=== PATIENT | male | born 1935 | race Caucasian/White ===

== ENCOUNTER 2019-01-27 13:38 | Inpatient (IN) | payer MEDICARE, BC ==
[2019-01-27 14:34] LABS: ALT (SGPT) 7 U/L (8-55); AST (SGOT) 12 U/L (5-34); Albumin 3.8 g/dL (3.4-4.8); Alkaline Phosphatase 67 U/L (40-110); Anion Gap 12 mmol/L (10-20); BUN (Urea Nitrogen) 10 mg/dL (8.4-25.7); Bilirubin, Total 0.8 mg/dL (0.2-1.2); Calc. Creatinine Clearance 0 mL/min (70-130); Carbon Dioxide 35 mmol/L (23-31); Chloride 99 mmol/L (98-107); Estimated GFR-MDRD Greater than 90; Globulin 3.4 g/dL (2.4-3.5); Glucose 144 mg/dL (83-110); Potassium 4.8 mmol/L (3.5-5.1); Protein, Total 7.2 g/dL (5.8-8.1); Sodium 141 mmol/L (136-145)
[2019-01-27 14:35] LABS: #Eosinphils 0.1 thou/uL (0.0-0.7); #Lymphocytes 0.6 thou/uL (1.20-3.40); #Monocytes 0.9 thou/uL (0.11-0.59); #Neutrophils 12.2 thou/uL (1.40-6.50); %Eosinophils 0.8 % (0.0-10.0); %Monocytes 6.2 % (0.0-10.0); %Neutrophils 88.9 % (42.0-75.0); Hemoglobin 15.6 g/dL (14.0-18.0); Mean Corpuscular HGB CONC 32.1 g/dL (32.0-36.0); Mean Corpuscular Hemoglobin 32.3 pg (27.0-31.0); Mean Platelet Volume 8.2 fL (7.4-10.4); Platelet Count 273 thou/uL (130-400); RBC Distribution Width 12.7 % (11.5-14.5); Red Blood Cell (RBC) Count 4.82 mill/uL (4.70-6.10); White Blood Cell (WBC) Count 13.7 thou/uL (4.8-10.8)
--- NOTE | 2019-01-27 14:51 | RAD ---
XR Chest 1 View Portable History: Shortness of breath Comparison: Radiograph 2018 Findings: Heart size is enlarged. Mild bibasilar atelectasis. No pneumothorax. Pulmonary arteries are dilated. Moderate degenerative changes of both glenohumeral joints. Impression: Chronic findings. No acute intrathoracic abnormality.
[2019-01-27 14:55] LABS: CKMB 2.8 ng/mL (0-6.6)
[2019-01-27] MEDS ORDERED: cefTRIAXone\\ROCEPHIN 2 GM VIAL ONE (15:45)
[2019-01-27] MEDS ORDERED: Azithromycin 500 MG VIAL ONE (15:45)
[2019-01-27] MEDS ORDERED: Acetaminophen 325 MG TAB PO PRN (16:59)
[2019-01-27] MEDS ORDERED: Dextrose 5% in Water 1,000 ML IV PRN (17:03)
[2019-01-27] MEDS ORDERED: Dextrose 50% Abboject 50 ML SYRINGE SLOW IVP PRN (17:03)
[2019-01-27 17:19] LABS: Lactic Acid 2.2 mmol/L (0.5-2.2); Troponin I 0.039 ng/mL (< 0.028)
[2019-01-27] MEDS ORDERED: methylPREDNISolone Sod Succ 40 MG VIAL IVP SCH (18:00)
--- NOTE | 2019-01-27 18:29 | HP ---
CHIEF COMPLAINT: Shortness of breath and cough. HISTORY OF PRESENT ILLNESS: This patient is 83-year-old male with history of aggressive smoking 2 to 3 packs per day for many years. The patient says he has never been diagnosed with COPD. He follows at [facility]. He reports that about 2 days ago, he started getting some "cold symptoms." He described it as his throat "clogging." He had subsequent nasal congestion and been using some nasal spray. He has been coughing. The cough is generally a wet cough, but he is having difficulty producing significant amount of sputum (patient produced a fair amount of sputum in the time that I was talking to him). He has yellowish discolored sputum. He says he feels hot, but he is not sure about specifically having fever. He does report some dyspnea on exertion. It has been worse for about 6 months, seems to be more of a problem when he tries to get up to go the bathroom in the night rather than so much being a problem during the day. He denies any chest pain. He has had some wheezing. States that his hearing aids actually amplify the wheezing. His has noted intermittent wheezing for the past several months, but nothing as bad as it is right now. REVIEW OF SYSTEMS: The patient has been having relatively frequent bowel movements and voids. His appetite has been fairly normal and he is a bit hungry now. He has had no peripheral edema and does not appear to have any orthopnea. All other systems reviewed. All pertinent positives and negatives noted in the history of present illness. PAST MEDICAL HISTORY: BPH; hyperlipidemia; hypertension; diabetes mellitus; atrial fibrillation, followed by Dr. Jeffers. He says he has not been diagnosed with COPD previously. PAST SURGICAL HISTORY: Appendectomy, tonsillectomy, bilateral knee replacements. FAMILY HISTORY: Mother at 93. Father at 76. He had TB when he was younger, had carotid stenosis, and reportedly of liver cancer, although he was not a drinker. SOCIAL HISTORY: The patient smokes 2 to 3 packs a day, was a moderate drinker, but quit about 40 years ago. No drugs. He is . He is a full code and his would be his surrogate decision maker should that become necessary. ALLERGIES: PENICILLIN. CURRENT MEDICATIONS: They do not know the medications per se, but do know that he is on: 1. Metformin. 2. Januvia. 3. Finasteride. 4. Xarelto. PHYSICAL EXAMINATION: VITAL SIGNS: Blood pressure has ranged from 163/79 up to 182 systolic and 108 diastolic. GENERAL: He is a large gentleman, somewhat obese. He is in no distress. Awake, alert, oriented, pleasant, and cooperative. He is tachypneic. HEENT: PERRL. No OP lesions. Does have a relatively small oral airway. NECK: Supple and symmetric. HEART: Irregularly irregular without murmurs. LUNGS: Have scattered wheezing. Diminished air exchange. He has diffuse rales and a very wet sounding cough. When he does cough, he tends to become very red in the face to almost cyanotic at times. ABDOMEN: Obese, soft, nontender, and nondistended. Positive bowel sounds. No masses. No organomegaly. EXTREMITIES: Have no cyanosis, clubbing, or edema. He has well-healed surgical scars over the anterior knees bilaterally. He does have good peripheral pulses. LABORATORY DATA: White count is 13.7, hemoglobin is 15.6, platelets 273. Sodium 141, potassium 4.8, chloride 99, CO2 of 35, BUN 10, creatinine 0.81, glucose 144, lactic acid 2.7, AST 12, ALT 7. Troponin 0.05. BNP 209. Albumin is 3.8. Chest x-ray shows cardiomegaly, which is mild along with some chronic findings, but no acute abnormalities are noted. IMPRESSION AND PLAN: 1. Chronic obstructive pulmonary disease exacerbation with bronchitis. He has a negative chest x-ray, but clearly has abnormal lung exam with a productive cough with discolored sputum. He has received Rocephin and azithromycin in the emergency department. I believe it is reasonable to continue with those. We will initiate nebulizer treatments and steroids. Continue with p.r.n. oxygen. 2. Acute hypoxic respiratory failure. O2 saturation on room air was 92%. We have no baseline. Therefore, assuming this is acute, although it is possible this could be some chronic underlying hypoxia in a patient with an extensive smoking history. He is a little better now on oxygen. We will keep that range with his O2 saturations around 92%. 3. Chronic atrial fibrillation. He is on Xarelto. I do not know the dose. I spoke with Dr. Jeffers, who is his cloth laminating supervisor. He will see if he can find that information. In the meantime, I will keep him on 15 mg b.i.d. so we can clarify that it seems to be rate control, but also appears to be chronically in atrial fibrillation. 4. Diabetes mellitus. He knows he is on metformin and Januvia. I will keep him on the lowest doses of those for now and so we can clarify the actual dose Accu-Cheks sliding scale and a diabetic diet. 5. Mild leukocytosis. Suspect this is simply related to some stress reaction and demargination could be related to his bronchitis as well. 6. Mild lactic acidosis. Repeat was 2.2, appears resolved. 7. Equivocal troponin. It is in the indeterminate range, could be related to the hypoxia. We will continue to trend. We will consult Cardiology for the atrial fibrillation. 8. Slightly elevated BNP. He has no echocardiograms reported within our system. He has no known history of cardiomyopathy. He did have an ejection fraction of 40% to 45% on a heart catheterization performed in 2012. I do not believe he has significant decompensation of heart failure at this time and not going to aggressively diurese him based on the lack of pulmonary edema and the minimal elevation of the BNP. 9. History of benign prostatic hypertrophy. Continue with the finasteride. Job ID: [id number]
[2019-01-27] MEDS ORDERED: Ondansetron PF 4 MG/2 ML Vial IVP PRN (18:48)
[2019-01-27] MEDS ORDERED: Ondansetron ODT 4 MG TAB SL PRN (18:48)
[2019-01-27 20:37] LABS: Troponin I 0.066 ng/mL (< 0.028)
[2019-01-27] MEDS: Rivaroxaban 15 MG TAB PO SCH (21:18)
[2019-01-27] MEDS: Famotidine 20 MG TAB PO SCH (21:18)
[2019-01-27] MEDS: guaiFENesin ER 600 MG TAB PO SCH (21:18)
[2019-01-27] MEDS: methylPREDNISolone Sod Succ 40 MG VIAL IVP SCH (21:18)
[2019-01-27 22:02] VITALS: BMI 38.9
[2019-01-28] MEDS: methylPREDNISolone Sod Succ 40 MG VIAL IVP SCH ×4 (02:59→20:33)
[2019-01-28 04:57] LABS: #Basophils 0.1 thou/uL (0.0-0.2); #Lymphocytes 0.2 thou/uL (1.20-3.40); #Monocytes 0.1 thou/uL (0.11-0.59); #Neutrophils 7.2 thou/uL (1.40-6.50); %Basophils 1.9 % (0.0-1.0); %Eosinophils 0.3 % (0.0-10.0); %Lymphocytes 2.3 % (21.0-51.0); %Monocytes 1.6 % (0.0-10.0); Hemoglobin 14.7 g/dL (14.0-18.0); Mean Corpuscular HGB CONC 31.6 g/dL (32.0-36.0); Mean Corpuscular Hemoglobin 31.9 pg (27.0-31.0); Mean Platelet Volume 7.8 fL (7.4-10.4); Platelet Count 228 thou/uL (130-400); RBC Distribution Width 12.7 % (11.5-14.5); Red Blood Cell (RBC) Count 4.62 mill/uL (4.70-6.10); White Blood Cell (WBC) Count 7.7 thou/uL (4.8-10.8)
[2019-01-28 05:07] LABS: Anion Gap 11 mmol/L (10-20); BUN (Urea Nitrogen) 10 mg/dL (8.4-25.7); Calc. Creatinine Clearance 135 mL/min (70-130); Calcium 8.7 mg/dL (7.8-10.44); Carbon Dioxide 31 mmol/L (23-31); Chloride 102 mmol/L (98-107); Estimated GFR-MDRD Greater than 90; Glucose 204 mg/dL (83-110); Potassium 4.6 mmol/L (3.5-5.1); Sodium 139 mmol/L (136-145)
[2019-01-28] MEDS ORDERED: metFORMIN 500 MG TAB PO SCH (08:00)
[2019-01-28] MEDS: Alogliptin 6.25 MG TAB PO SCH (08:54)
[2019-01-28] MEDS: Rivaroxaban 15 MG TAB PO SCH (08:55)
[2019-01-28] MEDS: Famotidine 20 MG TAB PO SCH ×2 (08:55→20:33)
[2019-01-28] MEDS: guaiFENesin ER 600 MG TAB PO SCH ×2 (08:55→20:33)
[2019-01-28] MEDS: Finasteride 5 MG TAB PO SCH (08:55)
[2019-01-28] MEDS ORDERED: Rivaroxaban 10 MG TAB PO SCH (10:00)
[2019-01-28] MEDS ORDERED: Lisinopril/Hydrochlorothiazide 20 mg/12.5 mg Tablet PO SCH (10:00)
[2019-01-28] MEDS: HumaLOG 300 UNITS/3 ML VIAL SC PRN ×2 (12:12→16:06)
--- NOTE | 2019-01-28 14:24 | CON ---
DATE OF CONSULTATION: HISTORY OF PRESENT ILLNESS: An 83-year-old gentleman, who presents with increasing dyspnea. The patient has a previous history of mild cardiomyopathy and chronic atrial fibrillation. The patient was seen in 2012. He underwent a cardiac catheterization. He was found to have a mild decreased left ventricular ejection fraction of 40% to 45% with normal coronary arteries. The patient has been on medical therapy including Coreg and lisinopril. The patient's most recent echo currently revealed normal left ventricular ejection fraction of 50% to 55%. The patient was in usual state of health when he presented with increasing dyspnea. The patient denied having any chest discomfort. The patient denied having any PND or orthopnea. The patient unfortunately continues to smoke. PAST MEDICAL HISTORY: Significant for, 1. Atrial fibrillation. 2. History of cardiomyopathy. 3. Diabetes mellitus. 4. Hypertension. 5. Dyslipidemia. PAST SURGICAL HISTORY: He has had knee replacement, tonsillectomy, and appendectomy. SOCIAL HISTORY: The patient continues to have a long history of tobacco abuse. FAMILY HISTORY: Positive family history of coronary artery disease. MEDICATIONS: On admission was; 1. Metformin 1000 b.i.d. 2. Finasteride 5 mg daily. 3. Sertraline 50 mg daily. 4. Flomax 0.4 daily. 5. Januvia 100 daily. 6. Xarelto 20 daily. 7. Lisinopril/hydrochlorothiazide 25/12.5 two tablets every morning. 8. Coreg 25 b.i.d. 9. Livalo 2 mg p.o. at bedtime. ALLERGIES: PENICILLIN. REVIEW OF SYSTEMS: Ten-point system otherwise unremarkable. PHYSICAL EXAMINATION: GENERAL: This is an elderly gentleman, in no acute distress with a blood pressure of 137/55. NECK: Showed no jugular venous distention. LUNGS: Coarse breath sounds bilateral. HEART: Irregular rate and rhythm. Normal S1 and S2. No murmurs. ABDOMEN: Distended. EXTREMITIES: Show trace edema. VASCULAR: Radial pulses are 2+. LABORATORY RESULTS: Sodium 139, potassium 4.6, chloride 102, bicarb 31, BUN 10, creatinine 0.78, and glucose 204. White blood cell count 7.7, hemoglobin 14.7, hematocrit 46.6, and platelets are 228. IMAGING DATA: His EKG revealed atrial fibrillation with an incomplete right bundle-branch block. No acute ST-T wave changes. IMPRESSION: 1. Chronic obstructive pulmonary disease exacerbation. 2. Permanent atrial fibrillation. 3. History of cardiomyopathy. 4. Diabetes mellitus. 5. Hypertension. 6. Dyslipidemia. 7. Tobacco abuse. PLAN: This gentleman presents with a COPD exacerbation. We will try to wean the patient off Coreg with his recent echo showing normal left ventricular systolic function. He does not have to be on this medication and will ask for Pulmonary consultation. We will follow this patient with you through his hospitalization. Job ID: [id number]
[2019-01-28] MEDS: cefTRIAXone\\ROCEPHIN 1 GM in Sodium Chloride 0.9% 100 ML IVPB SCH (14:57)
[2019-01-28] MEDS: Azithromycin 500 MG in Sodium Chloride 0.9% 250 ML 250 ML IVPB SCH (15:56)
[2019-01-28] MEDS: metFORMIN 500 MG TAB PO SCH (16:05)
[2019-01-28] MEDS: Carvedilol 6.25 MG TAB PO SCH (16:06)
--- NOTE | 2019-01-28 19:22 | CON ---
DATE OF CONSULTATION: 01/28/2019 SERVICE: Pulmonary Medicine. REASON FOR CONSULTATION: COPD. HISTORY OF PRESENT ILLNESS: The patient is a very pleasant 83-year-old white male with past medical history significant for extensive smoking history. He does not carry a formal diagnosis of COPD, though he uses albuterol to affected home on occasion. He was doing fairly well until about 3 days prior to admission when he started having increasing cough, bringing up yellow sputum, and increasing dyspnea on exertion. He got to the point where he could not walk 10 feet without being significantly winded. He presented to the emergency department, and was given antibiotics, nebulized medications, and steroids and he has made a fantastic recovery. The patient has been able to walk up and down the hallways without much difficulty. He denies any fevers or chills. He was bringing up some yellow phlegm, but it has cleared out a little bit and is now pale yellow to white. Otherwise , he is returning to his usual state of health. He has never had a formal diagnosis of COPD. PAST MEDICAL HISTORY: 1. Dyslipidemia. 2. Hypertension. 3. Type 2 diabetes mellitus. 4. Atrial fibrillation. 5. BPH. 6. COPD, suspected. PAST SURGICAL HISTORY: 1. Appendectomy. 2. Tonsillectomy. 3. Bilateral knee replacements. FAMILY HISTORY: Noncontributory. SOCIAL HISTORY: He smokes 2 to 3 packs on a daily basis and has greater than 150 pack year history of smoking. He quit drinking alcohol roughly 40 years ago. Denies any significant illicit drug use. He has no exposure to chemicals, dust, asbestos, or tuberculosis. Currently, he is retired. ALLERGIES: PENICILLIN. MEDICATIONS: List of his inpatient medications was reviewed. I have converted his antibiotics over to p.o. REVIEW OF SYSTEMS: General; head, ears, eyes, nose, throat; cardiovascular; respiratory; GI; ; musculoskeletal; neurologic; and skin are negative except as mentioned in the HPI. PHYSICAL EXAMINATION: VITAL SIGNS: Afebrile, pulse 63, blood pressure 139/59, respirations 20, and saturation 94% on 2 L nasal cannula. GENERAL: The patient is awake and alert, in no apparent distress. LUNGS: Really reduced air entry. There is a prolonged expiratory phase. Really, he is not moving enough air for me hear a lot of adventitious sounds. HEART: Normal rate and regular. ABDOMEN: Soft, nontender, and nondistended. Bowel sounds are positive. MUSCULOSKELETAL: No cyanosis or clubbing. There is no pitting in the bilateral lower extremities. NEUROLOGIC: Grossly nonfocal. LABORATORY DATA: WBC 7.7, hemoglobin 14.7, platelets 228,000. Basic metabolic profile is otherwise unremarkable. Liver function studies are negative. BNP 208. Troponin was originally 0.05, but downtrending to 0.039. Lactate 2.2, but was originally elevated at 2.7. ASSESSMENT: 1. Acute hypoxic respiratory failure. 2. Chronic obstructive pulmonary disease with acute exacerbation. 3. Atrial fibrillation, chronic. 4. Obstructive sleep apnea, strongly suspected. DISCUSSION AND PLAN: The patient is doing absolutely fantastic from a respiratory standpoint compared to when he came in. I think it is reasonable for us to discharge him home today or tomorrow morning if he continues to improve. I will convert him over to a p.o. antibiotics and steroids. He can go out on p.r.n. DuoNeb. I would like to see him in my clinic within 2 to 3 weeks after he is discharged from the hospital, so we can clarify his underlying lung disease. Furthermore, he has horrendous sleep apnea, witnessed by multiple family members. This may require investigation in the outpatient setting, though sometimes 83-year-old do not take to noninvasive therapy well. Time will tell, however. 70 minutes have been devoted to this patient in various activities. I personally reviewed all imaging studies and laboratory data noted within this document. For fifty percent of this time, I was interacting with the patient at the bedside or coordinating care with the care team. For the remainder of the time I was immediately available to the patient in the hospital unit. Job ID: [id number] MTDD
[2019-01-28] MEDS ORDERED: Tamsulosin HCl 0.4 MG CAP PO SCH (21:00)
--- NOTE | 2019-01-28 21:08 | PDOC.HOSPP ---
- Subjective Subjective: Doing much better today. Cough improved. Breathing improved. Still has some trouble coughing up the sputum. - Objective Vital Signs & Weight: Vital Signs (12 hours) Temp Pulse Resp BP Pulse Ox 01/28/19 13:41 96 20 01/28/19 12:00 96.1 F L 80 20 134/62 95 01/28/19 10:41 63 Weight Weight 287 lb 5 oz I&O: 01/27/19 01/28/19 01/29/19 06:59 06:59 06:59 Intake Total 1740 Balance 1740 Result Diagrams: 01/28/19 04:44 01/28/19 04:44 Additional Labs: Accuchecks 01/28/19 01/28/19 01/28/19 20:50 16:06 10:04 POC Glucose 229 H 282 H 225 H 01/28/19 05:52 POC Glucose 173 H Hospitalist ROS - Medication Medications: Active Medications Generic Name Dose Route Start Last Admin Trade Name Freq PRN Reason Stop Dose Admin Albuterol/Ipratropium 3 ml 01/27/19 19:00 01/28/19 18:48 Duoneb NEB 3 ml [id number] CITLALLI Administration Alogliptin Benzoate 6.25 mg 01/28/19 09:00 01/28/19 08:54 Alogliptin PO 6.25 mg DAILY CITLALLI Administration Carvedilol 6.25 mg 01/28/19 17:00 01/28/19 16:06 Coreg PO 6.25 mg BID-WM CITLALLI Administration Famotidine 20 mg 01/27/19 21:00 01/28/19 20:33 Pepcid PO 20 mg BID CITLALLI Administration Finasteride 5 mg 01/28/19 09:00 01/28/19 08:55 Proscar PO 5 mg DAILY CITLALLI Administration Guaifenesin 600 mg 01/27/19 21:00 01/28/19 20:33 Mucinex PO 600 mg Q12HR CITLALLI Administration Azithromycin 500 mg/ Sodium 250 mls @ 250 mls/hr 01/28/19 16:00 01/28/19 15: 56 Chloride IVPB 250 mls 1600 CITLALLI Administration Ceftriaxone Sodium 1 gm/ 100 mls @ 200 mls/hr 01/28/19 15:00 01/28/19 14:57 Sodium Chloride IVPB 100 mls 1500 CITLALLI Administration Insulin Human Lispro 0 units 01/27/19 17:03 01/28/19 16:06 Humalog SC 4 unit .MILD SLIDING SCALE PRN Administration Mild Correctional Scale Metformin HCl 1,000 mg 01/28/19 17:00 01/28/19 16:05 Glucophage PO 1,000 mg BID-WM CITLALLI Administration Methylprednisolone Sodium Succinate 40 mg 01/27/19 21:00 01/28/19 20:33 Solu-Medrol IVP 40 mg 0300,0900,1500,2100 CITLALLI Administration Sodium Chloride 10 ml 01/27/19 21:00 01/28/19 20:34 Flush - Normal Saline IVF 10 ml Q12HR CITLALLI Administration Tamsulosin HCl 0.4 mg 01/28/19 21:00 01/28/19 20:33 Flomax PO 0.4 mg HS CITLALLI Administration - Exam General Appearance: NAD, awake alert Heart: no murmur, no gallops, no rubs, normal peripheral pulses, irregular Respiratory: no rales (Modest. Much improved.), no ronchi (Resolved.) Respiratory - other findings: Generally diminished. Gastrointestinal: soft, non-tender, non-distended, normal bowel sounds, no palpable masses, no hepatomegaly, no splenomegaly, no bruit Extremities: no cyanosis, no clubbing, no edema Skin: normal turgor Musculoskeletal: normal tone Psychiatric: normal affect, normal behavior, A&O x 3 Hosp A/P (1) Bronchitis Code(s): J40 - BRONCHITIS, NOT SPECIFIED ACUTE OR CHRONIC Status: Acute (2) COPD exacerbation Code(s): J44.1 - CHRONIC OBSTRUCTIVE PULMONARY DISEASE W (ACUTE) EXACERBATION Status: Acute (3) RADHA (obstructive sleep apnea) Code(s): G47.33 - OBSTRUCTIVE SLEEP APNEA (ADULT) (PEDIATRIC) Status: Acute (4) Chronic atrial fibrillation Code(s): I48.20 - CHRONIC ATRIAL FIBRILLATION, UNSPECIFIED Status: Acute (5) Acute respiratory failure with hypoxia Code(s): J96.01 - ACUTE RESPIRATORY FAILURE WITH HYPOXIA Status: Acute (6) Diabetes mellitus Code(s): E11.9 - TYPE 2 DIABETES MELLITUS WITHOUT COMPLICATIONS Status: Acute (7) Cardiomyopathy Code(s): I42.9 - CARDIOMYOPATHY, UNSPECIFIED Status: Acute (8) BPH (benign prostatic hyperplasia) Code(s): N40.0 - BENIGN PROSTATIC HYPERPLASIA WITHOUT LOWER URINRY TRACT SYMP Status: Acute (9) Lactic acidosis Code(s): E87.2 - ACIDOSIS Status: Acute (10) Elevated troponin Code(s): R79.89 - OTHER SPECIFIED ABNORMAL FINDINGS OF BLOOD CHEMISTRY Status : Acute (11) Obesity with body mass index (BMI) of 30.0 to 39.9 Code(s): E66.9 - OBESITY, UNSPECIFIED Status: Acute - Plan Trops likely normal for age. Not following a pattern and not likely ischemia related. COPD exac is much improved. Continue with abx, steroids, nebs. Anticipate weaning oxygen tomorrow and sending him home. Will need prn nebs. OP Pulm follow up. Blood sugars adequately controlled. Acidosis resolved.
[2019-01-29] MEDS: methylPREDNISolone Sod Succ 40 MG VIAL IVP SCH ×3 (02:30→14:37)
[2019-01-29] MEDS: guaiFENesin ER 600 MG TAB PO SCH (09:00)
[2019-01-29] MEDS ORDERED: Lisinopril/Hydrochlorothiazide 20 mg/12.5 mg Tablet PO SCH (09:00)
[2019-01-29] MEDS: Famotidine 20 MG TAB PO SCH (09:00)
[2019-01-29] MEDS: metFORMIN 500 MG TAB PO SCH ×2 (09:00→17:06)
[2019-01-29] MEDS: Finasteride 5 MG TAB PO SCH (09:00)
[2019-01-29] MEDS: Carvedilol 6.25 MG TAB PO SCH ×2 (09:01→17:06)
[2019-01-29] MEDS: Alogliptin 6.25 MG TAB PO SCH (09:01)
--- NOTE | 2019-01-29 10:30 | PRG ---
DATE OF SERVICE: 01/29/2019 SERVICE: Pulmonary Medicine. INTERVAL HISTORY: The patient is doing fine from respiratory standpoint. Breathing comfortably. He indicates his breathing is basically back to baseline. He is coughing a little bit, but the amount of phlegm he is bringing up is much less and is clear. Otherwise, there has been no interval change to his condition. PHYSICAL EXAMINATION: VITAL SIGNS: Afebrile, pulse 66, blood pressure 144/65, respirations 18, and saturation 99% on 2.5 L nasal cannula. GENERAL: The patient is awake and alert, in no apparent distress. LUNGS: Very good air entry compared to yesterday. There is a prolonged expiratory phase as well as polyphonic wheezing today. No significant rhonchi or crackling is appreciated. HEART: Normal rate, regular. ABDOMEN: Soft, nontender, and nondistended. Bowel sounds are positive. MUSCULOSKELETAL: No cyanosis or clubbing. Trace pitting is present in bilateral lower extremities. NEUROLOGIC: Grossly nonfocal. LABORATORY DATA: Blood sugars ranged from 137 to 229. ASSESSMENT: 1. Acute hypoxic respiratory failure. 2. Chronic obstructive pulmonary disease with acute exacerbation. 3. Atrial fibrillation, chronic. 4. Obstructive sleep apnea, strongly suspected. DISCUSSION AND PLAN: I would get the patient up and walk him around without oxygen. Regardless of whether or not he desaturates, if he indicates that his breathing is pretty close to baseline and he feels comfortable going home, that would be fine. He will need 5 days of steroids and antibiotics. He should go out with p.r.n. nebulized medications. I will have him visit with me late this month in the outpatient setting, so we can clarify his underlying lung disease, and set him up for a polysomnogram. If for any reason, he has shortness of breath, which is worse than usual with ambulation on room air, we should arrange for him to go out on oxygen for at least one month. I will re-qualify him in the outpatient setting if he continues to need it. Job ID: [id number]
[2019-01-29] MEDS: HumaLOG 300 UNITS/3 ML VIAL SC PRN ×2 (11:15→17:07)
[2019-01-29] MEDS: cefTRIAXone\\ROCEPHIN 1 GM in Sodium Chloride 0.9% 100 ML IVPB SCH (14:37)
[2019-01-29] MEDS: Azithromycin 500 MG in Sodium Chloride 0.9% 250 ML 250 ML IVPB SCH (16:00)
[2019-01-29 16:02] VITALS: BP 144/49; TEMP 97.7
[2019-01-29] MEDS ORDERED: Rivaroxaban 10 MG TAB PO SCH ×2 (18:00→21:00)
--- NOTE | 2019-01-30 12:20 | DIS ---
DATE OF ADMISSION: 01/27/2019 DATE OF DISCHARGE: 01/29/2019 DISCHARGE DIAGNOSES: 1. Acute respiratory failure with hypoxia. 2. Acute bronchitis with chronic obstructive pulmonary disease exacerbation. 3. Chronic obstructive pulmonary disease. 4. Obstructive sleep apnea. 5. Chronic atrial fibrillation. 6. Diabetes mellitus. 7. Cardiomyopathy. 8. BPH. 9. Lactic acidosis. 10. Elevated troponin, likely due to demand ischemia from hypoxia resulting in type 2 ST-elevation myocardial infarction. 11. Obesity with body mass index of 39. HISTORY: This patient is 83-year-old male who smokes 2 to 3 packs of cigarettes per day, who has never been previously diagnosed with COPD, who reported some increasing dyspnea on exertion for about 6 months. He subsequently developed a productive cough with discolored sputum causing him substantial increase in his shortness of breath. He subsequently presented to the emergency department. There, he was noted to be slightly hypoxic. His chest x-ray showed chronic findings, but nothing acute. HOSPITAL COURSE: The patient was admitted to the hospital, started on some steroids, nebulizer treatments, supplemental oxygen, antibiotics, and mucolytics. By the following day, the patient was substantially improved. His breathing had improved remarkably. He had no wheezing at that time. He was seen in consultation by Dr. Jeffers, who is his regular advertiser following his atrial fibrillation. He recommended weaning off the patient's carvedilol given his underlying respiratory issues and a prior echocardiogram showing no specific left ventricular dysfunction. He also consulted Dr. Charles who agreed with the plan of care and recommended outpatient followup and outpatient investigation for possible or likely obstructive sleep apnea. Prior to discharge, the patient did get up and ambulate off oxygen , he desatted to about 87%, per my verbal report. Therefore, he qualified for home oxygen. This was subsequently ordered and arranged. PHYSICAL EXAMINATION: VITAL SIGNS: On the day of discharge, temperature is 97.7, pulse 95, respirations 20, O2 saturation 93% on 2 L, BP is 144/49. GENERAL: He was obese, awake, alert, oriented, pleasant, cooperative. HEART: Regular rate and rhythm. No murmurs. LUNGS: Diminished, but no wheezes noted. Very minimal rales which were largely cleared with cough. ABDOMEN: Soft, nontender. EXTREMITIES: No edema. DISPOSITION: The patient is discharged to home. ACTIVITY: As tolerated. DIET: He will remain on a diabetic diet. MEDICATIONS: He will be on: 1. Guaifenesin 600 mg q.12 hours. 2. Levofloxacin 500 mg daily. 3. Prednisone 20 mg daily. He will continue: 1. Finasteride. 2. Januvia. 3. Sertraline. 4. Livalo. 5. Lisinopril HCTZ. 6. Metformin. 7. Xarelto. 8. Tamsulosin. 9. Carvedilol. FOLLOWUP: He is to follow up with Dr. hCarles in 2 to 3 weeks. He can return to the hospital should he have any problems prior to that time. TIME SPENT: Total time in discharge activities was 40 minutes. Job ID: [id number] [facility] [place]
--- NOTE | 2019-01-31 05:04 | PQF ---
[employer] Supervisor Crystal Reports Winform ViewerNICKOLAS NORMAN DAVID R MD [id number] [facility]-[id number] CLINICAL DOCUMENTATION CLARIFICATION FORM: POST DISCHARGE Addendum to original discharge summary date: ____ Late entry note date: __ DATE: 01/31/2019 ATTN: CARLI JAMES MD Please exercise your independent, professional judgment in responding to the clarification form. Clinical indicators are provided on the bottom of this form for your review Please check appropriate box(s): Could you clarify which condition Patient was being admitted [ ] Acute Hypoxic Respiratory Failure [ ] COPD exacerbation [ ] Other diagnosis [ ] Unable to determine In addition, please specify: Present on Admission (POA): [ ] Yes [ ] No [ ] Unable to determine For continuity of documentation, please document condition throughout progress notes and discharge summary. Thank You. CLINICAL INDICATORS - SIGNS / SYMPTOMS / LABS O2 saturation 90 on 01/27 and 89 on 01/29 - Documented in Vital signs SOB and he has never been diagnosed with COPD - Documented in H&P on 01/27 by Sree Deng Dyspnea on exartion - Documented in H&P on 01/27 by Sree Deng COPD exacerbation with Bronchitis - Documented in H&P on 01/27 by Sree Deng O2 saturation on Room air 92% - Documented in H&P on 01/27 by Sree Deng Chronic underlying Hypoxia - Documented in H&P on 01/27 by Sree Deng RISK FACTORS Smoker 2-3 packe per day -Documented in H&P on 01/27 by Sree Deng Acute respiratory failure -Documented in H&P on 01/27 by Sree Deng TREATMENTS: O2 delivery Nasal Cannula He received Rocephin and azithromycin in ED - Documented in H&P on 01/27 by Sree Deng initiate Nebulizer and steroids - Documented in H&P on 01/27 by Sree SHERIFF Waterproofing Supervisor Crystal Reports Winform Viewer (This form is maintained as a part of the permanent medical record) 2014 [employer], [employer]. All Rights Reserved [email or web address] [not provided] MTDD
== END 2019-01-29 17:30 | disposition home or self-care (01) | DRG 189 ==
LOC: ERS 13:38 → 2NO 18:25
PROVIDERS: ADMIT Internal Medicine; ATTEND Internal Medicine
DX: J96.01 Acute respiratory failure with hypoxia (principal); I21.A1 Myocardial infarction type 2; J44.1 Chronic obstructive pulmonary disease with (acute) exacerbation; E87.2 Acidosis; I48.20 Chronic atrial fibrillation, unspecified; I42.9 Cardiomyopathy, unspecified; J44.0 Chronic obstructive pulmonary disease with (acute) lower respiratory infection; N40.0 Benign prostatic hyperplasia without lower urinary tract symptoms; E78.5 Hyperlipidemia, unspecified; Z90.49 Acquired absence of other specified parts of digestive tract; I10 Essential (primary) hypertension; E11.9 Type 2 diabetes mellitus without complications; Z90.89 Acquired absence of other organs; Z96.653 Presence of artificial knee joint, bilateral; F17.210 Nicotine dependence, cigarettes, uncomplicated; Z88.0 Allergy status to penicillin; Z79.899 Other long term (current) drug therapy; D72.829 Elevated white blood cell count, unspecified; G47.33 Obstructive sleep apnea (adult) (pediatric); R79.89 Other specified abnormal findings of blood chemistry; E66.9 Obesity, unspecified; Z68.39 Body mass index [BMI] 39.0-39.9, adult; J20.9 Acute bronchitis, unspecified
CPT/HCPCS: 36415; 36416; 71045; 80048; 80053; 82553; 83605; 83880; 84484; 85025; 93005; 94640; 94760; 96365; 96367; J0456; J0696; J2920; J3490; J7050; J7620

== ENCOUNTER 2019-08-14 12:59 | Outpatient (CLI) | payer MEDICARE, BC ==
--- NOTE | 2019-08-14 13:37 | RAD ---
PA AND LATERAL VIEWS CHEST: 08/14/19 HISTORY: Dyspnea. COMPARISON: 03/29/18. FINDINGS: The heart is enlarged. The aorta is tortuous. The lungs are expanded without lobar consolidation, pne umothoraces, ga pulmonary edema or pleural effusion. There are degenerative changes in the spine. IMPRESSION: No acute process. POS: CHRISTIANA
== END 2019-08-14 13:00 | disposition home or self-care (01) ==
LOC: BICRAD 12:59
PROVIDERS: ATTEND Internal Medicine Critical Care Medicine
DX: R06.00 Dyspnea, unspecified (principal)
CPT/HCPCS: 71046

== ENCOUNTER 2019-12-09 11:27 | Inpatient (IN) | payer MEDICARE, BC, OTHER ==
[2019-12-05 09:32] VITALS: BMI 38.6
[~2019-12-09 11:27] MED LIST: EPHEDRINE 25 MG/5 ML SYRINGE ONE; Glycopyrrolate 0.2 MG/ML 5 ML SYRINGE ONE; Lidocaine 1% PF 5 ML VIAL ONE; Ondansetron PF 4 MG/2 ML Vial ONE; PROPOFOL 200 MG/20 ML VIAL ONE; Rocuronium Bromide 10 MG/ML (10ML VIAL) ONE
[2019-12-09] MEDS ORDERED: Sodium Chloride 0.9% 0 ML ONE (13:28)
[2019-12-09] MEDS ORDERED: cefTRIAXone\\ROCEPHIN 2 GM VIAL ONE (13:28)
[2019-12-09] MEDS ORDERED: Vancomycin 1 GM/200 ML BAG ONE (13:28)
[2019-12-09] MEDS ORDERED: Sodium Chloride 0.9% 100 ML ONE (13:31)
[2019-12-09] MEDS ORDERED: Iothalamate Meglumine 60% 50 ML VIAL FS ONE (14:47)
[2019-12-09] MEDS ORDERED: Fentanyl 100 MCG/2 ML VIAL ONE (15:03)
[2019-12-09] MEDS ORDERED: predniSONE 5 MG TAB PO PRN (16:24)
[2019-12-09] MEDS ORDERED: guaiFENesin ER 600 MG TAB PO PRN (16:24)
[2019-12-09] MEDS ORDERED: B & O PR PRN (16:26)
[2019-12-09] MEDS ORDERED: SEMAGLUTIDE 5 MG SC SCH (16:30)
[2019-12-09] MEDS ORDERED: D5 1/2 NS w/20 mEq KCL 1,000 ML ONE (16:43)
[2019-12-09] MEDS ORDERED: Ondansetron HCl/PF 4 MG/2 ML Vial IVP PRN (16:43)
[2019-12-09] MEDS ORDERED: Promethazine HCl 25 MG/ML VIAL SLOW IVP PRN (16:43)
[2019-12-09] MEDS ORDERED: Promethazine HCl 25 MG/ML VIAL IM PRN (16:43)
[2019-12-09] MEDS: Docusate 100 MG CAP PO SCH (21:18)
[2019-12-09] MEDS: Atorvastatin Calcium 10 MG TAB PO SCH (21:18)
[2019-12-09] MEDS: D5 1/2 NS w/20 mEq KCL 1,000 ML IV SCH (21:36)
[2019-12-09] MEDS ORDERED: Dextrose 5% in Water 1,000 ML IV PRN (21:38)
[2019-12-09] MEDS ORDERED: HumaLOG 300 UNITS/3 ML VIAL SC PRN ×2 (21:38)
[2019-12-09] MEDS ORDERED: Dextrose 50% Abboject 50 ML SYRINGE SLOW IVP PRN (21:38)
--- NOTE | 2019-12-09 22:09 | CON ---
DATE OF CONSULTATION: PRIMARY CARE PHYSICIAN: Dr. Flores. REASON FOR CONSULTATION: Medical management status post TURP. HISTORY OF PRESENT ILLNESS: The patient is an 84-year-old male with past medical history significant for diabetes, high lipids, atrial fibrillation, and hypertension, who presented for a TURP with Dr. Story. We have been consulted for medical management with the patient. At the time of interview, he had no complaints. PAST MEDICAL HISTORY: Diabetes type 2, hyperlipidemia, atrial fibrillation, hypertension, cardiomyopathy, obesity, COPD. PAST SURGICAL HISTORY: Right total knee replacement in 2009. ALLERGIES: PENICILLIN. MEDICATIONS: 1. Anoro Ellipta one puff inhaled q.a.m. 2. Ozempic 5 mg subcu q.7 days. 3. Vascepa two capsules by mouth twice daily before meals. 4. Sertraline 50 mg q.a.m. 5. Xarelto 20 mg daily. 6. Livalo 2 mg daily. 7. Lisinopril/hydrochlorothiazide 20/12.5 one tab daily. 8. Proscar 5 mg daily. 9. Tamsulosin 0.4 mg p.o. at bedtime. 10. Prednisone 5 mg p.r.n. 11. Metformin 1000 mg p.o. b.i.d. 12. Januvia 100 mg every morning. Please note, Xarelto has been held since 12/05/2019 for the surgery. SOCIAL HISTORY: The patient lives at home with his . Denies any alcohol or drug use. FAMILY HISTORY: Noncontributory to this case. REVIEW OF SYSTEMS: All other review of systems are negative unless noted in the HPI. PHYSICAL EXAMINATION: VITAL SIGNS: Temperature 97.8, pulse 63, respiratory rate 16, O2 saturation 93% , blood pressure 135/60. GENERAL: The patient in no acute distress. HEENT: Head atraumatic, normocephalic. CARDIOVASCULAR: Irregular rate and rhythm, rate controlled. No murmurs, no rubs, no gallops. RESPIRATORY: Clear to auscultation bilaterally. No rhonchi, no wheezes, no rales. ABDOMEN: Soft, nontender, nondistended. EXTREMITIES: No cyanosis, no edema. LABORATORY DATA: EKG on file shows chronic atrial fibrillation, controlled rate. Labs completed on 12/06/2019 showed white blood cells 10.7, red blood cells 4.61 , hemoglobin 14.3, hematocrit 44.1, platelets 364. Sodium 137, potassium 5.1, creatinine 0.89, GFR 82. COVID screen was negative. IMPRESSION AND PLAN: 1. Diabetes. Monitor Accu-Cheks before meals and at bedtime. Cover with sliding scale insulin. Restart home medications. 2. Atrial fibrillation. Vital signs q.shift. Restart home medications. Restart Xarelto when cleared by surgeon. 3. Hypertension. Restart home medications. Monitor vital signs every shift. 4. The patient on GI and DVT prophylaxis. 5. The patient wishes to be full code. Surrogate decision maker is his . Patient states the plan is to be discharged in the morning, we will continue to follow patient throughout course of hospital stay. Job ID: [id number] VIANNEY
[2019-12-10] MEDS: metFORMIN 500 MG TAB PO SCH ×3 (00:23→18:42)
--- NOTE | 2019-12-10 00:33 | OP ---
DATE OF PROCEDURE: 12/09/2019 PREOPERATIVE DIAGNOSES: Bladder outlet obstruction, lower urinary tract symptoms. POSTOPERATIVE DIAGNOSES: Bladder outlet obstruction, lower urinary tract symptoms. PROCEDURE PERFORMED: Cysto TURP. ANESTHESIA: General. ESTIMATED BLOOD LOSS: 50 mL. FINDINGS: He had no stricture disease. He had large lateral lobe, small middle lobe. The bladder had 1+ trabeculation to ureteral orifices with clear efflux. No tumor, foreign body, or stone. DESCRIPTION OF PROCEDURE: After obtained written and verbal consent from the patient after receiving IV antibiotics, he was taken to the operating suite. He was placed in the supine position on the treatment table. PlexiPulses placed in his lower extremities and turned on. He was given a general anesthetic and oral obturator intubation. He was placed in dorsal lithotomy position, sterilely prepped and draped. Cystoscopy was performed with a 22-Pu[place] Rican sheath. This was well lubricated and passed under direct vision through the male urethra into the urinary bladder with aid of a 30-degree lens and video camera and monitor. The bladder was examined with both the 30 and the 70-degree lens with the findings above. Instruments were removed and he was gently dilated to 26-[place]ican with [place] sounds. A 24-Pu[place]ican resectoscope sheath with Ltaha obturator was passed under direct vision with a 30-degree lens video camera and monitored through the male urethra into the prostatic urethra into the bladder. RightSignature resectoscope with the Gyrus generator and a 30-degree lens and video camera and monitor were used. The trigone, bladder neck, verumontanum were identified. We initially resected down the small median lobe and then floor from the 5 to 7 o'clock position from bladder neck just proximal to the verumontanum. The left lobe was taken down from 12 o'clock to 5. The right from 12 o'clock to 7. Apical tissue was resected in half loop bites, coagulating current was used to obtain hemostasis. We Ellik'd out the chips at the end of the case and reinspected. There was good hemostasis. The bladder looked fine. Instruments were removed. Laboy catheter 22-Pu[place]ican 3-way was placed with aid of a catheter guide into the bladder. About 50 cc placed in the balloon. It was hand irrigated, it was clear. He was taken out of dorsal lithotomy position. Catheter was secured on his right thigh mild traction with Velcro leg strap and sucked up to some continuous bladder irrigation. He was awakened and extubated and taken by stretcher to recovery room. Job ID: [id number] [facility]
[2019-12-10] MEDS: D5 1/2 NS w/20 mEq KCL 1,000 ML IV SCH ×2 (05:31→10:46)
[2019-12-10 05:56] LABS: #Eosinphils 0.1 thou/uL (0.0-0.7); #Lymphocytes 0.7 thou/uL (1.20-3.40); #Monocytes 0.7 thou/uL (0.11-0.59); #Neutrophils 11.4 thou/uL (1.40-6.50); %Basophils 0.3 % (0.0-1.0); %Eosinophils 0.4 % (0.0-10.0); %Lymphocytes 5.7 % (21.0-51.0); %Monocytes 5.5 % (0.0-10.0); %Neutrophils 88.1 % (42.0-75.0); Hemoglobin 12.9 g/dL (14.0-18.0); Mean Corpuscular HGB CONC 31.2 g/dL (32.0-36.0); Mean Corpuscular Hemoglobin 30.2 pg (27.0-31.0); Mean Platelet Volume 8.2 fL (7.4-10.4); Platelet Count 331 thou/uL (130-400); Red Blood Cell (RBC) Count 4.25 mill/uL (4.70-6.10)
[2019-12-10 06:14] LABS: Anion Gap 13 mmol/L (10-20); BUN (Urea Nitrogen) 15 mg/dL (8.4-25.7); Calc. Creatinine Clearance 125 mL/min (70-130); Calcium 8.2 mg/dL (7.8-10.44); Carbon Dioxide 25 mmol/L (23-31); Chloride 103 mmol/L (98-107); Estimated GFR-MDRD 90; Glucose 157 mg/dL (83-110); Potassium 4.5 mmol/L (3.5-5.1); Sodium 136 mmol/L (136-145)
[2019-12-10] MEDS: Lisinopril/Hydrochlorothiazide 20 mg/12.5 mg Tablet PO SCH (09:46)
[2019-12-10] MEDS: Finasteride 5 MG TAB PO SCH (09:47)
[2019-12-10] MEDS: Docusate 100 MG CAP PO SCH ×2 (09:47→21:26)
[2019-12-10] MEDS: Acetaminophen 500 MG TAB PO PRN ×2 (10:47→21:26)
[2019-12-10] MEDS: Alogliptin 25 MG TAB PO SCH (10:57)
[2019-12-10] MEDS ORDERED: cefTRIAXone\\ROCEPHIN 1 GM in Sodium Chloride 0.9% 100 ML IVPB SCH (14:00)
[2019-12-10] MEDS: Icosapent Ethyl 1 GM CAPSULE PO SCH (16:55)
[2019-12-10] MEDS ORDERED: Melatonin 3 MG TAB PO PRN (20:39)
--- NOTE | 2019-12-10 21:19 | PDOC.HOSPP ---
- Subjective Encounter Date: 12/10/19 Encounter Time: 11:30 Subjective: Patient seen and examined for medical management. Denies any chest pain, shortness of breath or lower extremity swelling. Pain controlled. - Objective Vital Signs & Weight: Vital Signs (12 hours) Temp Pulse Resp BP Pulse Ox 12/10/19 20:12 97.9 F 72 18 149/69 H 92 L 12/10/19 18:52 60 16 95 12/10/19 16:23 98.6 F 73 16 144/69 H 93 L 12/10/19 12:09 58 L 16 96 12/10/19 11:38 98.6 F 79 18 162/97 H 93 L Weight Weight 285 lb I&O: 12/09/19 12/10/19 12/11/19 06:59 06:59 06:59 Output Total 3825 Balance -3825 Result Diagrams: 12/10/19 05:34 12/10/19 05:34 Additional Labs: Accuchecks 12/10/19 12/10/19 12/10/19 16:56 13:30 05:19 POC Glucose 152 H 210 H 151 H Radiology Reviewed by me: Yes (Chest x-ray from Reviewed) Hospitalist ROS - Review of Systems Respiratory: denies: cough, dry, shortness of breath, hemoptysis, SOB with excertion, pleuritic pain, sputum, wheezing, other Cardiovascular: denies: chest pain, palpitations, orthopnea, paroxysmal noc. dyspnea, edema, light headedness, other - Medication Medications: Active Medications Generic Name Dose Route Start Last Admin Trade Name Freq PRN Reason Stop Dose Admin Acetaminophen 500 mg 12/09/19 16:19 12/10/19 10:47 Tylenol PO 500 mg Q4H PRN Administration MAYS/Fever > 101F/mild pain(1-3) Albuterol/Ipratropium 3 ml 12/09/19 19:00 12/10/19 18:52 Duoneb NEB 3 ml [id number] CITLALLI Administration Alogliptin Benzoate 25 mg 12/10/19 09:00 12/10/19 10:57 Alogliptin PO 25 mg DAILY CITLALLI Administration Atorvastatin Calcium 10 mg 12/09/19 21:00 12/09/19 21:18 Lipitor PO 10 mg HS CITLALLI Administration Docusate Sodium 100 mg 12/09/19 21:00 12/10/19 09:47 Colace PO Not Given BID CITLALLI Finasteride 5 mg 12/10/19 09:00 12/10/19 09:47 Proscar PO 5 mg QAM CITLALLI Administration Lisinopril/HCTZ 1 tab 12/10/19 09:00 12/10/19 09:46 Prinizide 20-12.5 PO 1 tab QAM CITLALLI Administration Ceftriaxone Sodium 1 gm/ 100 mls @ 200 mls/hr 12/10/19 14:00 12/10/19 16:57 Sodium Chloride IVPB 100 mls 1400 CITLALLI Administration Potassium Chloride/Dextrose/Sod Cl 1,000 mls @ 75 mls/hr 12/09/19 16:30 12/10/19 10:46 D5 1/2 Ns W/20 Meq Kcl IV 1,000 mls .[id number] CITLALLI Administration Insulin Human Lispro 0 units 12/09/19 21:38 12/10/19 05:24 Humalog SC 2 unit .MILD SLIDING SCALE PRN Administration Mild Correctional Scale Metformin HCl 1,000 mg 12/09/19 08:00 12/10/19 18:42 Glucophage PO 1,000 mg BID-WM CITLALLI Administration Miscellaneous Medication 2 gm 12/10/19 09:00 12/10/19 16:55 Vascepa PO Not Given DAILY CITLALLI Sertraline HCl 50 mg 12/10/19 09:00 12/10/19 09:47 Zoloft PO 50 mg DAILY CITLALLI Administration - Exam General Appearance: NAD Heart: RRR, no gallops Respiratory: no wheezes, no rales Gastrointestinal: non-tender, non-distended, normal bowel sounds Extremities: no cyanosis, no clubbing Neurological: no new deficit Hosp A/P (1) BPH (benign prostatic hyperplasia) Code(s): N40.0 - BENIGN PROSTATIC HYPERPLASIA WITHOUT LOWER URINRY TRACT SYMP Status: Acute (2) Chronic atrial fibrillation Code(s): I48.20 - CHRONIC ATRIAL FIBRILLATION, UNSPECIFIED Status: Acute (3) RADHA (obstructive sleep apnea) Code(s): G47.33 - OBSTRUCTIVE SLEEP APNEA (ADULT) (PEDIATRIC) Status: Acute (4) Obesity with body mass index (BMI) of 30.0 to 39.9 Code(s): E66.9 - OBESITY, UNSPECIFIED Status: Acute (5) Diabetes mellitus, type II Status: Chronic Qualifiers: Chronic kidney disease stage: stage 2 (mild) - Plan DVT proph w/SCDs 12/09 Anticoagulation on hold due to recent surgery. Continue gentle hydration. Continue antibiotics per urology. Continue sliding scale with metformin. Continue lisinopril with HCTZ. Continue mild sliding scale. Continue other medications as above. Other inactive issues hyperlipidemia, Chronic anemia probably due to nutritional deficiency
[2019-12-10] MEDS: Atorvastatin Calcium 10 MG TAB PO SCH (21:26)
[2019-12-11 07:49] LABS: Anion Gap 14 mmol/L (10-20); BUN (Urea Nitrogen) 11 mg/dL (8.4-25.7); Calc. Creatinine Clearance 120 mL/min (70-130); Calcium 8.3 mg/dL (7.8-10.44); Carbon Dioxide 25 mmol/L (23-31); Chloride 103 mmol/L (98-107); Estimated GFR-MDRD 86; Glucose 139 mg/dL (83-110); Potassium 4.5 mmol/L (3.5-5.1); Sodium 137 mmol/L (136-145)
[2019-12-11] MEDS: Icosapent Ethyl 1 GM CAPSULE PO SCH (09:47)
[2019-12-11] MEDS: Lisinopril/Hydrochlorothiazide 20 mg/12.5 mg Tablet PO SCH (09:47)
[2019-12-11] MEDS: Docusate 100 MG CAP PO SCH (09:47)
[2019-12-11] MEDS: metFORMIN 500 MG TAB PO SCH (09:47)
[2019-12-11] MEDS: Alogliptin 25 MG TAB PO SCH (09:47)
[2019-12-11] MEDS: D5 1/2 NS w/20 mEq KCL 1,000 ML IV SCH (09:47)
[2019-12-11] MEDS: Finasteride 5 MG TAB PO SCH (09:47)
[2019-12-11 10:44] LABS: %Lymphocytes 7.5 % (21.0-51.0); %Monocytes 8.2 % (0.0-10.0); %Neutrophils 82.5 % (42.0-75.0); Hemoglobin 12.9 g/dL (14.0-18.0); Manual Diff?? NO; Mean Corpuscular HGB CONC 31.9 g/dL (32.0-36.0); Mean Corpuscular Hemoglobin 31.4 pg (27.0-31.0); Mean Corpuscular Volume 98.4 fL (78.0-98.0); Mean Platelet Volume 7.5 fL (7.4-10.4); Platelet Count 308 thou/uL (130-400); RBC Distribution Width 14.7 % (11.5-14.5); Red Blood Cell (RBC) Count 4.11 mill/uL (4.70-6.10); White Blood Cell (WBC) Count 10.1 thou/uL (4.8-10.8)
[2019-12-11 10:45] LABS: #Lymphocytes 0.8 thou/uL (1.20-3.40); #Monocytes 0.8 thou/uL (0.11-0.59); #Neutrophils 8.3 thou/uL (1.40-6.50); %Basophils 0.4 % (0.0-1.0); %Eosinophils 1.5 % (0.0-10.0)
[2019-12-11 10:46] LABS: #Eosinphils 0.1 thou/uL (0.0-0.7)
[2019-12-11 12:47] VITALS: BP 164/90; TEMP 99.2
--- NOTE | 2019-12-11 23:40 | DIS ---
DATE OF ADMISSION: 12/09/2019 DATE OF DISCHARGE: 12/11/2019 This patient was admitted on the , underwent a general anesthetic and a cysto TURP. Postop check found to be awake and alert, stable vital signs. Clear urine on continuous bladder irrigation. He was transferred from recovery room up to the floor. He lives well over an hour away from [facility]. He had a hospice consult because of his diabetes, hypertension, and other health issues. He was afebrile with stable vital signs overnight. Urine was clear. His continuous bladder irrigation was stopped. He was allowed to get up and move around. Catheter was loosened. He was tolerating a regular diet. He was maintained on some IV antibiotics while he is in the hospital, Rocephin. He had been given vanc and Rocephin at the start of surgery. He was placed on Colace. He was kept off blood thinners. His urine remained clear the next morning and his catheter was removed. He voided 3 times without difficulty. No significant dysuria. Urine clearing up nicely and no incontinence, a good force of stream. He is tolerating his diet. He was afebrile, stable vital signs. No chest pain, no shortness of breath, calves are nontender, abdomen is soft. He was discharged home on his routine medications except to hold any nonsteroidals and aspirin. Will go home with a prescription for some Colace and for some Cipro. His pathology is pending at the time of this discharge summary. He does not need to take his tamsulosin anymore, but he will stay on his finasteride. I will arrange followup for him in a couple of weeks. His condition on discharge is stable. Job ID: [id number]
--- NOTE | 2019-12-12 13:14 | PQF ---
CLINICAL DOCUMENTATION CLARIFICATION FORM: Dear : Pablo Story Date / Time: 12/12/2019 Please exercise your independent, professional judgment in responding to the clarification form. Clinical indicators are provided on the bottom of this form for your review Please check appropriate box(es): [ ] Bladder outlet obstruction is due to BPH [ ] Bladder outlet obstruction is not due to BPH [ ] Other diagnosis [ ] Unable to determine In addition, please specify: Present on Admission (POA): [ ] Yes [ ] No [ ] Unable to determine To be completed by CDI/Coding staff for physician review: Present Clinical Indicators - Signs / Symptoms / Labs Results and Location in Medical Record [ x ] Preoperative and postoperative diagnoses are bladder outlet obstruction and lower urinary tract symptoms OP note 12/08 by Pablo Story MD [ x ] Benign prostatic hyperplasia. Continue antibiotics per urology Progress note 12/09 by David Cheung MD [ x ] He had large lateral lobe, small middle lobe. The bladder had 1+ trabeculation to ureteral orifices with clear efflux OP note 12/08 by Pablo Story MD Present Risk Factors Results and Location in Medical Record [ x ] BPH, diabetes, obesity Progress note 12/09 by David Cheung MD Present Treatments Results and Location in Medical Record [ x ] Cystoscopy with TURP OP note 12/08 by Pablo Story MD CDS/Commercial Carpet Installer Signature: [id number] Phone #: Date/Time: 12/12/2019 This is a permanent part of the Medical Record [employer] [facility]
== END 2019-12-11 12:40 | disposition home or self-care (01) | DRG 666 ==
LOC: SDC 11:27 → SURG B 16:28
PROVIDERS: ADMIT Urology; ATTEND Urology
PROC: 0VT08ZZ Resection of Prostate, Via Natural or Artificial Opening Endoscopic (ICD-10-PCS; principal; 2019-12-09)
DX: N32.0 Bladder-neck obstruction (principal); I42.9 Cardiomyopathy, unspecified; I48.20 Chronic atrial fibrillation, unspecified; N40.1 Benign prostatic hyperplasia with lower urinary tract symptoms; E78.5 Hyperlipidemia, unspecified; J44.9 Chronic obstructive pulmonary disease, unspecified; E66.9 Obesity, unspecified; G47.33 Obstructive sleep apnea (adult) (pediatric); N18.2 Chronic kidney disease, stage 2 (mild); D53.9 Nutritional anemia, unspecified; I12.9 Hypertensive chronic kidney disease with stage 1 through stage 4 chronic kidney disease, or unspecified chronic kidney disease; E11.22 Type 2 diabetes mellitus with diabetic chronic kidney disease; Z96.653 Presence of artificial knee joint, bilateral; Z88.0 Allergy status to penicillin; Z79.84 Long term (current) use of oral hypoglycemic drugs; Z68.38 Body mass index [BMI] 38.0-38.9, adult; Z20.828 Contact with and (suspected) exposure to other viral communicable diseases
CPT/HCPCS: 36416; 80048; 83735; 85025; 88305; 94640; J0696; J2405; J2704; J3010; J3370; J3480; J3490; J7620

== ENCOUNTER 2021-01-07 16:07 | Inpatient (IN) | payer MEDICARE, BC ==
[~2021-01-07 16:07] MED LIST changes: -EPHEDRINE 25 MG/5 ML SYRINGE ONE; -Glycopyrrolate 0.2 MG/ML 5 ML SYRINGE ONE; +Iopamidol-370 76% 500 ML 1 ML ONE; -Lidocaine 1% PF 5 ML VIAL ONE; -Ondansetron PF 4 MG/2 ML Vial ONE; -PROPOFOL 200 MG/20 ML VIAL ONE; -Rocuronium Bromide 10 MG/ML (10ML VIAL) ONE
[2021-01-07 16:42] LABS: Hemoglobin 17.6 g/dL (14.0-18.0); Mean Corpuscular HGB CONC 32.9 g/dL (32.0-36.0); Mean Corpuscular Hemoglobin 32.6 pg (27.0-31.0); Mean Platelet Volume 8.1 fL (7.4-10.4); Platelet Count 306 thou/uL (130-400); RBC Distribution Width 12.9 % (11.5-14.5); White Blood Cell (WBC) Count 30.1 thou/uL (4.8-10.8)
[2021-01-07 17:01] LABS: Band 27 % (5-11); Lymphocytes 2 % (21-51); MDiff Complete? YES; Metamyelocyte 4 % (0-0); Monocytes 1 % (0-10); Neutrophil 66 % (42-75); Platelet Morphology Comment Appears Adequate; RBC Morphology Normal
[2021-01-07] MEDS ORDERED: Digoxin 0.5 MG/2 ML AMP ONE (17:01)
[2021-01-07 17:03] LABS: ALT (SGPT) 14 U/L (8-55); AST (SGOT) 29 U/L (5-34); Albumin 3.9 g/dL (3.4-4.8); Alkaline Phosphatase 95 U/L (40-110); Anion Gap 18 mmol/L (10-20); BUN (Urea Nitrogen) 28 mg/dL (8.4-25.7); Bilirubin, Total 0.8 mg/dL (0.2-1.2); Calc. Creatinine Clearance 0 mL/min (70-130); Carbon Dioxide 25 mmol/L (23-31); Chloride 97 mmol/L (98-107); Globulin 3.3 g/dL (2.4-3.5); Glucose 252 mg/dL (83-110); Potassium 4.6 mmol/L (3.5-5.1); Protein, Total 7.2 g/dL (5.8-8.1); Sodium 135 mmol/L (136-145)
[2021-01-07 17:23] LABS: CKMB 2.1 ng/mL (0-6.6)
[2021-01-07 18:31] LABS: Bacteria/HPF 4+ HPF (None Seen); Bilirubin Negative (Negative); Blood, Urine 2+ (Negative); Clarity Turbid (Clear); Glucose, Urine (Dipstick) 30 mg/dL (Negative); Ketone, Urine Trace mg/dL (Negative); Leukocyte 500 Leu/uL (Negative); Nitrite Negative (Negative); Protein, Urine (Dipstick) 300 mg/dL (Neg-Trace); Specific Gravity, Urine 1.025 (1.002-1.036); Squamous Epithelial 21-50 HPF (0-3); WBC/HPF Greater than 50 HPF (0-3); pH, Urine 5.5 (5.0-9.0)
[2021-01-07] MEDS ORDERED: Cefepime 2 GM VIAL ONE (18:35)
[2021-01-07] MEDS ORDERED: Vancomycin 1 GM/200 ML BAG ONE ×2 (18:35→20:22)
[2021-01-07 19:42] LABS: Bacteria/HPF 3+ HPF (None Seen); Bilirubin Negative (Negative); Blood, Urine 2+ (Negative); Clarity Turbid (Clear); Glucose, Urine (Dipstick) 30 mg/dL (Negative); Ketone, Urine Trace mg/dL (Negative); Leukocyte 250 Leu/uL (Negative); Nitrite Negative (Negative); Protein, Urine (Dipstick) 300 mg/dL (Neg-Trace); Specific Gravity, Urine 1.037 (1.002-1.036); Urobilinogen Normal mg/dL (Less than 2); WBC/HPF 21-50 HPF (0-3); pH, Urine 5.5 (5.0-9.0)
[2021-01-07] MEDS ORDERED: Fentanyl 100 MCG/2 ML VIAL ONE (19:44)
[2021-01-07 20:21] LABS: SARS-CoV-2 NAA Rapid Test Not Detected (NotDetected)
[2021-01-07] MEDS ORDERED: Fluconazole In NaCl,Iso-Osm 200 MG in Premix Bag 1 BAG IVPB SCH (20:30)
[2021-01-07 20:51] LABS: Lactic Acid 5.2 mmol/L (0.5-2.2)
[2021-01-07 20:53] LABS: Actual Bicarbonate (HCO3a) 18.7 mEq/L (22-28); Analyzer IN Cardio ER; Base Excess (BEa) -5.4 mEq/L (-2.0 to +3.0); Calcium, Ionized (arterial) 1.15 mmol/L (1.12-1.30); Carboxyhemoglobin (COHb) 0.8 gm% (0.0-3.0); Hemoglobin (Hb) 15.9 g/dL (14.0-18.0); O2 Tension (PaO2), arterial 150.3 mmHg (> 60.0); Potassium - ABG Lab 4.17 mmol/L (3.70-5.30); pH, Arterial 7.37 (7.35-7.45)
[2021-01-07 20:55] LABS: Puncture Site RRA
[2021-01-07] MEDS ORDERED: Acetaminophen 650 MG Suppository ONE (21:05)
[2021-01-07] MEDS ORDERED: Dextrose 5% in Water 1,000 ML IV PRN (21:23)
[2021-01-07] MEDS ORDERED: Acetaminophen 650 MG Suppository PR PRN (21:23)
[2021-01-07] MEDS ORDERED: Ondansetron ODT 4 MG TAB PO PRN (21:23)
[2021-01-07] MEDS ORDERED: Ondansetron PF 4 MG/2 ML Vial IVP PRN (21:23)
[2021-01-07] MEDS ORDERED: Dextrose 50% Abboject 50 ML SYRINGE SLOW IVP PRN (21:23)
[2021-01-07] MEDS ORDERED: HumaLOG 300 UNITS/3 ML VIAL SC PRN (21:23)
[2021-01-07] MEDS ORDERED: Norepinephrine 8 MG/0.9% NS 250 ML ONE (22:28)
[2021-01-07] MEDS: Sodium Chloride 0.9% 1,000 ML IV SCH (22:46)
[2021-01-07] MEDS: Norepinephrine 8 MG/0.9% NS 250 ML IVPB SCH (22:47)
[2021-01-07 23:54] VITALS: BMI 36.4
[2021-01-08 00:13] LABS: Lactic Acid 4.2 mmol/L (0.5-2.2)
[2021-01-08 00:18] LABS: Troponin I 0.339 ng/mL (< 0.028)
[2021-01-08] MEDS: HumaLOG 300 UNITS/3 ML VIAL SC PRN ×3 (00:38→12:18)
[2021-01-08 03:42] LABS: Hemoglobin 15.2 g/dL (14.0-18.0); Mean Corpuscular HGB CONC 33.1 g/dL (32.0-36.0); Mean Corpuscular Hemoglobin 33.1 pg (27.0-31.0); Mean Platelet Volume 8.7 fL (7.4-10.4); Platelet Count 248 thou/uL (130-400); RBC Distribution Width 13.2 % (11.5-14.5); Red Blood Cell (RBC) Count 4.58 mill/uL (4.70-6.10); White Blood Cell (WBC) Count 50.2 thou/uL (4.8-10.8)
[2021-01-08 03:44] LABS: Lactic Acid 3.4 mmol/L (0.5-2.2)
[2021-01-08 03:47] LABS: Anion Gap 19 mmol/L (10-20); BUN (Urea Nitrogen) 33 mg/dL (8.4-25.7); Calc. Creatinine Clearance 41 mL/min (70-130); Calcium 8.4 mg/dL (7.8-10.44); Carbon Dioxide 18 mmol/L (23-31); Chloride 101 mmol/L (98-107); Glucose 224 mg/dL (83-110); Potassium 4.5 mmol/L (3.5-5.1); Sodium 133 mmol/L (136-145)
[2021-01-08 03:54] LABS: Troponin I 0.298 ng/mL (< 0.028)
[2021-01-08] MEDS ORDERED: Meropenem 1 GM in Sodium Chloride 0.9% 100 ML IVPB SCH (04:07)
[2021-01-08 04:14] LABS: Band 40 % (5-11); Lymphocytes 3 % (21-51); MDiff Complete? YES; Macrocytosis SLIGHT = 6-15 cells (100X) (0-5/hpf); Metamyelocyte 17 % (0-0); Monocytes 5 % (0-10); Neutrophil 35 % (42-75); Platelet Morphology Comment Appears Adequate
[2021-01-08] MEDS: Sodium Chloride 0.9% 1,000 ML IV SCH ×3 (04:44→21:17)
[2021-01-08] MEDS: Norepinephrine 8 MG/0.9% NS 250 ML IVPB SCH ×2 (04:54→08:43)
[2021-01-08] MEDS ORDERED: MEROPENEM 1 GM/50 ML 1 GM in Premix Bag 1 BAG IVPB SCH (05:00)
[2021-01-08] MEDS ORDERED: Sodium Chloride 0.9% (PF) 10 ML VIAL FS PRN (10:15)
[2021-01-08] MEDS ORDERED: Pantoprazole 40 MG VIAL IVP SCH (10:30)
[2021-01-08] MEDS ORDERED: Rivaroxaban 10 MG TAB PO SCH (10:30)
[2021-01-08] MEDS: Meropenem 500 MG in Sodium Chloride 0.9% 100 ML IVPB SCH (12:27)
[2021-01-08] MEDS ORDERED: Iothalamate Meglumine 60% 50 ML VIAL FS ONE (13:46)
[2021-01-08] MEDS ORDERED: Ketamine 50 MG/ML (10ML VIAL) ONE (14:02)
[2021-01-08] MEDS ORDERED: Fentanyl 100 MCG/2 ML VIAL ONE (14:02)
[2021-01-08] MEDS ORDERED: Lidocaine 1% PF 5 ML VIAL ONE (14:10)
[2021-01-08] MEDS ORDERED: Glycopyrrolate 0.2 MG/ML 5 ML SYRINGE ONE (14:10)
[2021-01-08] MEDS ORDERED: PROPOFOL 200 MG/20 ML VIAL ONE (14:10)
[2021-01-08] MEDS ORDERED: PHENYLEPHRINE-NS 100 MCG/ML 10 ML SYRINGE ONE (14:10)
[2021-01-08] MEDS ORDERED: Ondansetron PF 4 MG/2 ML Vial ONE (14:10)
[2021-01-08] MEDS ORDERED: ePHEDrine 50 MG/ML VIAL ONE (14:10)
[2021-01-08 19:49] LABS: Vancomycin, Random 13.3 ug/mL (See Comment)
[2021-01-08] MEDS ORDERED: Vancomycin 1.5 GRAM/300 ML BAG 1.5 GM in Premix Bag 1 BAG IVPB SCH (20:00)
[2021-01-08] MEDS ORDERED: Vancomycin 1 GM in Premix Bag 1 BAG IVPB SCH (21:00)
[2021-01-08] MEDS ORDERED: Heparin 5,000 UNITS/ML VIAL SC SCH (21:00)
[2021-01-08] MEDS: Enoxaparin Sodium 120 MG/0.8 ML SYRINGE SC SCH (21:16)
[2021-01-09] MEDS: Meropenem 500 MG in Sodium Chloride 0.9% 100 ML IVPB SCH ×2 (01:08→13:37)
[2021-01-09] MEDS: Sodium Chloride 0.9% 1,000 ML IV SCH ×2 (01:09→12:11)
[2021-01-09] MEDS ORDERED: Rivaroxaban 10 MG TAB PO SCH (09:00)
[2021-01-09] MEDS: Pantoprazole 40 MG VIAL IVP SCH (09:35)
[2021-01-09] MEDS: Finasteride 5 MG TAB PO SCH (09:36)
[2021-01-09] MEDS: Enoxaparin Sodium 120 MG/0.8 ML SYRINGE SC SCH ×2 (09:36→21:27)
[2021-01-09] MEDS: Atorvastatin Calcium 10 MG TAB PO SCH (09:42)
[2021-01-09 10:35] LABS: Hemoglobin 13.9 g/dL (14.0-18.0); Mean Corpuscular HGB CONC 33.6 g/dL (32.0-36.0); Mean Corpuscular Hemoglobin 33.4 pg (27.0-31.0); Mean Corpuscular Volume 99.3 fL (78.0-98.0); RBC Distribution Width 13.4 % (11.5-14.5); Red Blood Cell (RBC) Count 4.16 mill/uL (4.70-6.10)
[2021-01-09 10:40] LABS: Anion Gap 16 mmol/L (10-20); BUN (Urea Nitrogen) 34 mg/dL (8.4-25.7); Calc. Creatinine Clearance 62 mL/min (70-130); Calcium 7.7 mg/dL (7.8-10.44); Carbon Dioxide 18 mmol/L (23-31); Chloride 106 mmol/L (98-107); Glucose 133 mg/dL (83-110); Potassium 4.4 mmol/L (3.5-5.1); Sodium 136 mmol/L (136-145)
[2021-01-09 10:58] LABS: Band 16 % (5-11); Lymphocytes 5 % (21-51); MDiff Complete? YES; Monocytes 2 % (0-10); Neutrophil 76 % (42-75); Platelet Count 143 thou/uL (130-400); Platelet Morphology Comment Appears Adequate; Reactive Lymphocytes 1 % (0-10); Vacuoles SLIGHT; White Blood Cell (WBC) Count 29.2 thou/uL (4.8-10.8)
[2021-01-09 20:45] LABS: Vancomycin, Random 12.5 ug/mL (See Comment)
[2021-01-09] MEDS: Acetaminophen 325 MG TAB PO PRN (21:27)
[2021-01-10] MEDS: Meropenem 500 MG in Sodium Chloride 0.9% 100 ML IVPB SCH ×2 (00:32→14:31)
[2021-01-10 05:06] LABS: Band 10 % (5-11); Hemoglobin 13.6 g/dL (14.0-18.0); Lymphocytes 8 % (21-51); MDiff Complete? YES; Macrocytosis SLIGHT = 6-15 cells (100X) (0-5/hpf); Mean Corpuscular Hemoglobin 31.7 pg (27.0-31.0); Mean Corpuscular Volume 99.1 fL (78.0-98.0); Mean Platelet Volume 9.5 fL (7.4-10.4); Metamyelocyte 1 % (0-0); Monocytes 5 % (0-10); Neutrophil 74 % (42-75); Platelet Count 131 thou/uL (130-400); Platelet Morphology Comment Appears Adequate; RBC Distribution Width 13.3 % (11.5-14.5); Reactive Lymphocytes 2 % (0-10); Red Blood Cell (RBC) Count 4.29 mill/uL (4.70-6.10); White Blood Cell (WBC) Count 19.6 thou/uL (4.8-10.8)
[2021-01-10 05:08] LABS: Anion Gap 13 mmol/L (10-20); BUN (Urea Nitrogen) 28 mg/dL (8.4-25.7); Calc. Creatinine Clearance 85 mL/min (70-130); Carbon Dioxide 22 mmol/L (23-31); Chloride 109 mmol/L (98-107); Glucose 119 mg/dL (83-110); Potassium 4.4 mmol/L (3.5-5.1); Sodium 140 mmol/L (136-145)
[2021-01-10] MEDS ORDERED: FLU VACC QS2021-22(65YR UP)/PF 240 MCG/0.7 ML SYRINGE IM ONE (09:00)
[2021-01-10] MEDS: Finasteride 5 MG TAB PO SCH (09:16)
[2021-01-10] MEDS: Enoxaparin Sodium 120 MG/0.8 ML SYRINGE SC SCH ×2 (09:16→20:45)
[2021-01-10] MEDS: Pantoprazole 40 MG VIAL IVP SCH (09:17)
[2021-01-10] MEDS: Nicotine 14 MG PATCH TD SCH (12:40)
[2021-01-10] MEDS: Acetaminophen 325 MG TAB PO PRN (18:35)
[2021-01-10] MEDS ORDERED: Morphine 4 MG/ML VIAL SLOW IVP SCH (20:15)
[2021-01-10] MEDS: Atorvastatin Calcium 10 MG TAB PO SCH (20:45)
[2021-01-11] MEDS: Meropenem 500 MG in Sodium Chloride 0.9% 100 ML IVPB SCH ×2 (01:58→12:51)
[2021-01-11 05:17] LABS: Anion Gap 14 mmol/L (10-20); BUN (Urea Nitrogen) 27 mg/dL (8.4-25.7); Calc. Creatinine Clearance 99 mL/min (70-130); Carbon Dioxide 23 mmol/L (23-31); Chloride 109 mmol/L (98-107); Glucose 129 mg/dL (83-110); Hemoglobin 13.5 g/dL (14.0-18.0); Mean Corpuscular HGB CONC 32.6 g/dL (32.0-36.0); Mean Corpuscular Hemoglobin 32.3 pg (27.0-31.0); Mean Corpuscular Volume 99.2 fL (78.0-98.0); Mean Platelet Volume 9.6 fL (7.4-10.4); Platelet Count 147 thou/uL (130-400); Potassium 4.2 mmol/L (3.5-5.1); RBC Distribution Width 13.3 % (11.5-14.5); Red Blood Cell (RBC) Count 4.19 mill/uL (4.70-6.10); Sodium 142 mmol/L (136-145); White Blood Cell (WBC) Count 9.6 thou/uL (4.8-10.8)
[2021-01-11 05:18] LABS: Band 3 % (5-11); Hypochromia SLIGHT = 6-15 cells (100X) (0-5/hpf); Lymphocytes 13 % (21-51); MDiff Complete? YES; Monocytes 8 % (0-10); Neutrophil 75 % (42-75); Platelet Morphology Comment Appears Adequate; Reactive Lymphocytes 1 % (0-10)
[2021-01-11] MEDS: Atorvastatin Calcium 10 MG TAB PO SCH ×2 (07:12→21:31)
[2021-01-11] MEDS ORDERED: HYDROcodone/Acetaminophen 5/325 mg Tablet PO PRN (08:28)
[2021-01-11] MEDS: Enoxaparin Sodium 120 MG/0.8 ML SYRINGE SC SCH ×2 (09:13→21:32)
[2021-01-11] MEDS: Phenazopyridine HCl 100 MG TAB PO SCH ×3 (09:14→17:46)
[2021-01-11] MEDS: Finasteride 5 MG TAB PO SCH (09:14)
[2021-01-11] MEDS: Nicotine 14 MG PATCH TD SCH (11:35)
[2021-01-11] MEDS: HumaLOG 300 UNITS/3 ML VIAL SC PRN ×2 (11:35→17:49)
[2021-01-11] MEDS ORDERED: Ziprasidone 20 MG CAP PO PRN (12:55)
[2021-01-11] MEDS: Icosapent Ethyl 1 GM CAPSULE PO SCH (17:46)
[2021-01-11] MEDS ORDERED: Tamsulosin HCl 0.4 MG CAP PO SCH (21:00)
[2021-01-11] MEDS ORDERED: Icosapent Ethyl 1 GM CAPSULE PO SCH (21:00)
[2021-01-11] MEDS: Carvedilol 6.25 MG TAB PO SCH (21:32)
[2021-01-12] MEDS: Meropenem 500 MG in Sodium Chloride 0.9% 100 ML IVPB SCH (01:19)
[2021-01-12 05:04] LABS: Anion Gap 13 mmol/L (10-20); BUN (Urea Nitrogen) 16 mg/dL (8.4-25.7); Calc. Creatinine Clearance 118 mL/min (70-130); Carbon Dioxide 24 mmol/L (23-31); Chloride 110 mmol/L (98-107); Glucose 134 mg/dL (83-110); Potassium 4.4 mmol/L (3.5-5.1); Sodium 143 mmol/L (136-145)
[2021-01-12 05:21] LABS: Band 1 % (5-11); Hemoglobin 13.9 g/dL (14.0-18.0); Lymphocytes 17 % (21-51); MDiff Complete? YES; Macrocytosis SLIGHT = 6-15 cells (100X) (0-5/hpf); Mean Corpuscular HGB CONC 34.4 g/dL (32.0-36.0); Mean Corpuscular Hemoglobin 33.7 pg (27.0-31.0); Mean Corpuscular Volume 98.2 fL (78.0-98.0); Mean Platelet Volume 9.2 fL (7.4-10.4); Metamyelocyte 2 % (0-0); Monocytes 4 % (0-10); Myelocyte 4 % (0-0); Neutrophil 71 % (42-75); Platelet Count 173 thou/uL (130-400); Platelet Morphology Comment Appears Adequate; Reactive Lymphocytes 1 % (0-10); Red Blood Cell (RBC) Count 4.12 mill/uL (4.70-6.10); White Blood Cell (WBC) Count 8.5 thou/uL (4.8-10.8)
[2021-01-12] MEDS: Carvedilol 6.25 MG TAB PO SCH (08:09)
[2021-01-12] MEDS: Enoxaparin Sodium 120 MG/0.8 ML SYRINGE SC SCH (08:09)
[2021-01-12] MEDS: Finasteride 5 MG TAB PO SCH (08:10)
[2021-01-12] MEDS: Icosapent Ethyl 1 GM CAPSULE PO SCH (08:10)
[2021-01-12] MEDS: Phenazopyridine HCl 100 MG TAB PO SCH ×2 (08:13→12:34)
[2021-01-12] MEDS ORDERED: Cyanocobalamin 1000 MCG/ML VIAL IM SCH (08:30)
[2021-01-12] MEDS ORDERED: Sildenafil Citrate 20 MG TAB PO SCH (09:00)
[2021-01-12] MEDS ORDERED: MEROPENEM 1 GM/50 ML 1 GM in Premix Bag 1 BAG IVPB SCH (09:00)
[2021-01-12 12:05] VITALS: TEMP 97.8
[2021-01-12] MEDS: Nicotine 14 MG PATCH TD SCH (12:33)
[2021-01-12 13:48] VITALS: BP 134/64
== END 2021-01-12 16:12 | disposition home or self-care (01) | DRG 853 ==
LOC: ERS 16:07 → CCU 20:14 → 2NO 01-09 11:46
PROVIDERS: ADMIT Student in an Organized Health Care Education/Training Program; ATTEND Hospitalist
PROC: 3E033XZ Introduction of Vasopressor into Peripheral Vein, Percutaneous Approach (ICD-10-PCS; 2021-01-07)
PROC: 06HY33Z Insertion of Infusion Device into Lower Vein, Percutaneous Approach (ICD-10-PCS; 2021-01-07)
PROC: 0T768DZ Dilation of Right Ureter with Intraluminal Device, Via Natural or Artificial Opening Endoscopic (ICD-10-PCS; principal; 2021-01-08)
PROC: BT1DZZZ Fluoroscopy of Right Kidney, Ureter and Bladder (ICD-10-PCS; 2021-01-08)
PROC: 0T9B80Z Drainage of Bladder with Drainage Device, Via Natural or Artificial Opening Endoscopic (ICD-10-PCS; 2021-01-08)
DX: A41.51 Sepsis due to Escherichia coli [E. coli] (principal); R65.21 Severe sepsis with septic shock; J96.01 Acute respiratory failure with hypoxia; N13.6 Pyonephrosis; I24.8 Other forms of acute ischemic heart disease; N17.9 Acute kidney failure, unspecified; I48.21 Permanent atrial fibrillation; I42.9 Cardiomyopathy, unspecified; Z20.822 Contact with and (suspected) exposure to COVID-19; I25.10 Atherosclerotic heart disease of native coronary artery without angina pectoris; J44.9 Chronic obstructive pulmonary disease, unspecified; N40.0 Benign prostatic hyperplasia without lower urinary tract symptoms; E78.5 Hyperlipidemia, unspecified; F17.210 Nicotine dependence, cigarettes, uncomplicated; G47.33 Obstructive sleep apnea (adult) (pediatric); E11.22 Type 2 diabetes mellitus with diabetic chronic kidney disease; N18.2 Chronic kidney disease, stage 2 (mild); I12.9 Hypertensive chronic kidney disease with stage 1 through stage 4 chronic kidney disease, or unspecified chronic kidney disease; E66.01 Morbid (severe) obesity due to excess calories; Z88.0 Allergy status to penicillin; Z79.84 Long term (current) use of oral hypoglycemic drugs; Z79.01 Long term (current) use of anticoagulants; Z90.49 Acquired absence of other specified parts of digestive tract; Z98.890 Other specified postprocedural states; Z79.51 Long term (current) use of inhaled steroids; Z68.37 Body mass index [BMI] 37.0-37.9, adult
CPT/HCPCS: 0240U; 36415; 36416; 36556; 36600; 51703; 71045; 71275; 74177; 74420; 80048; 80053; 80202; 81003; 81015; 82553; 82805; 83605; 83880; 84484; 85025; 87040; 87077; 87086; 87149; 87186; 93005; 94640; 94660; 96365; 96366; 96367; 96375; C2617; C9113; J0692; J1160; J1450; J1650; J1815; J2185; J2270; J2405; J2704; J3010; J3370; J3420; J3490; J7050; J7620; Q9961-U8; Q9967

== ENCOUNTER 2021-01-26 10:52 | Day surgery (SDC) | payer MEDICARE, BC ==
[2021-01-25 12:09] VITALS: BMI 36.6
[2021-01-26] MEDS ORDERED: Levofloxacin 500 mg/D5W 100 ml Premix Bag ONE (11:45)
[2021-01-26] MEDS ORDERED: Iothalamate Meglumine 60% 50 ML VIAL FS ONE (12:46)
[2021-01-26] MEDS ORDERED: Fentanyl 100 MCG/2 ML VIAL ONE (12:56)
[2021-01-26] MEDS ORDERED: Lidocaine 1% PF 5 ML VIAL ONE (13:04)
[2021-01-26] MEDS ORDERED: Ondansetron PF 4 MG/2 ML Vial ONE (13:04)
[2021-01-26] MEDS ORDERED: PROPOFOL 200 MG/20 ML VIAL ONE (13:04)
[2021-01-26] MEDS ORDERED: Glycopyrrolate 0.2 MG/ML 5 ML SYRINGE ONE (13:04)
== END 2021-01-26 16:30 | disposition home or self-care (01) ==
LOC: SDC 10:52
PROVIDERS: ATTEND Urology
PROC: 0TC38ZZ Extirpation of Matter from Right Kidney Pelvis, Via Natural or Artificial Opening Endoscopic (ICD-10-PCS; principal; 2021-01-26)
PROC: 0T768DZ Dilation of Right Ureter with Intraluminal Device, Via Natural or Artificial Opening Endoscopic (ICD-10-PCS; 2021-01-26)
DX: N20.0 Calculus of kidney (principal); Z79.01 Long term (current) use of anticoagulants; Z79.84 Long term (current) use of oral hypoglycemic drugs; Z79.899 Other long term (current) drug therapy; Z88.0 Allergy status to penicillin
CPT/HCPCS: 52356; 74420; 82365; Q9961; 88300; C2617; J1956; J2405; J2704; J3010

== ENCOUNTER 2022-03-25 12:37 | Inpatient (IN) | payer MEDICARE, BC ==
[2022-03-25] MEDS ORDERED: Acetaminophen 325 MG Suppository ONE (13:14)
[2022-03-25] MEDS ORDERED: cefTRIAXone\\ROCEPHIN 2 GM VIAL ONE (13:14)
[2022-03-25] MEDS ORDERED: Acetaminophen 650 MG Suppository ONE (13:14)
[2022-03-25 13:23] LABS: Actual Bicarbonate (HCO3a) 26.2 mEq/L (22-28); Analyzer IN Cardio ER; Base Excess (BEa) 1.9 mEq/L (-2.0 to +3.0); Calcium, Ionized (arterial) 1.07 mmol/L (1.12-1.30); Carboxyhemoglobin (COHb) 1.1 gm% (0.0-3.0); Hemoglobin (Hb) 14.8 g/dL (14.0-18.0); O2 Tension (PaO2), arterial 116.2 mmHg (> 60.0); Potassium - ABG Lab 4.02 mmol/L (3.70-5.30); pH, Arterial 7.43 (7.35-7.45)
[2022-03-25 13:24] LABS: Puncture Site RRA
[2022-03-25 13:26] LABS: Hemoglobin 14.9 g/dL (14.0-18.0); Mean Corpuscular HGB CONC 33.4 g/dL (32.0-36.0); Mean Corpuscular Hemoglobin 33.6 pg (27.0-31.0); Mean Platelet Volume 8.3 fL (7.4-10.4); Platelet Count 335 10x3/uL (130-400); RBC Distribution Width 12.8 % (11.5-14.5); Red Blood Cell (RBC) Count 4.45 mill/uL (4.70-6.10); White Blood Cell (WBC) Count 16.3 10x3/uL (4.8-10.8)
[2022-03-25 13:30] LABS: Bacteria/HPF None Seen HPF (None Seen); Bilirubin Negative (Negative); Blood, Urine 2+ (Negative); Clarity Clear (Clear); Glucose, Urine (Dipstick) >=1000 mg/dL (Negative); Ketone, Urine Negative (Negative); Leukocyte Negative Leu/uL (Negative); Nitrite Negative (Negative); Protein, Urine (Dipstick) 70 mg/dL (Neg-Trace); Specific Gravity, Urine 1.015 (1.002-1.036); Squamous Epithelial 0-3 HPF (0-3); Urobilinogen Normal mg/dL (Less than 2); WBC/HPF 0-3 HPF (0-3); pH, Urine 5.5 (5.0-9.0)
[2022-03-25 13:43] LABS: ALT (SGPT) 8 U/L (8-55); AST (SGOT) 17 U/L (5-34); Albumin 3.7 g/dL (3.4-4.8); Alkaline Phosphatase 64 U/L (40-110); Anion Gap 15 mmol/L (10-20); BUN (Urea Nitrogen) 17 mg/dL (8.4-25.7); Bilirubin, Total 0.5 mg/dL (0.2-1.2); Calc. Creatinine Clearance 0 mL/min (70-130); Calcium 8.8 mg/dL (7.8-10.44); Carbon Dioxide 29 mmol/L (23-31); Chloride 97 mmol/L (98-107); Estimated GFR 70; Globulin 3.8 g/dL (2.4-3.5); Glucose 214 mg/dL (83-110); Lipase 11 U/L (8-78); Potassium 4.3 mmol/L (3.5-5.1); Protein, Total 7.5 g/dL (5.8-8.1); Sodium 137 mmol/L (136-145)
[2022-03-25 13:44] LABS: Band 6 % (5-11); Lymphocytes 3 % (21-51); MDiff Complete? YES; Macrocytosis SLIGHT = 6-15 cells (100X) (0-5/hpf); Monocytes 4 % (0-10); Neutrophil 86 % (42-75); Platelet Morphology Comment Appears Adequate; Polychromasia SLIGHT = 2-3 cells (100X) (0-2/hpf); Reactive Lymphocytes 1 % (0-10)
[2022-03-25] MEDS ORDERED: Azithromycin 500 MG VIAL ONE (14:29)
[2022-03-25] MEDS ORDERED: Ondansetron PF 4 MG/2 ML Vial IVP PRN (16:42)
[2022-03-25] MEDS ORDERED: Acetaminophen 325 MG TAB PO PRN (16:42)
[2022-03-25] MEDS ORDERED: Sodium Chloride 0.9% 1,000 ML IV SCH (17:00)
[2022-03-25 17:23] LABS: Troponin I 0.028 ng/mL (< 0.028)
[2022-03-25 20:27] LABS: Troponin I 0.044 ng/mL (< 0.028)
[2022-03-25] MEDS: Cefepime 1 GM in Sodium Chloride 0.9% 100 ML IVPB SCH (20:50)
[2022-03-25] MEDS: Icosapent Ethyl 1 GM CAPSULE PO SCH ×2 (20:50→21:20)
[2022-03-25] MEDS: Atorvastatin Calcium 10 MG TAB PO SCH ×2 (20:50→21:20)
[2022-03-25] MEDS: Famotidine 20 MG TAB PO SCH ×2 (20:51→21:20)
[2022-03-25] MEDS: Tamsulosin HCl 0.4 MG CAP PO SCH ×2 (20:51→21:21)
[2022-03-25] MEDS: Carvedilol 6.25 MG TAB PO SCH ×2 (20:51→21:19)
[2022-03-25 23:15] LABS: Troponin I 0.029 ng/mL (< 0.028)
[2022-03-26 04:28] LABS: #Lymphocytes 1.3 thou/uL (1.20-3.40); #Monocytes 1.7 thou/uL (0.11-0.59); #Neutrophils 15.1 thou/uL (1.40-6.50); %Basophils 0.3 % (0.0-1.0); %Eosinophils 0.2 % (0.0-10.0); %Lymphocytes 7.2 % (21.0-51.0); %Monocytes 9.1 % (0.0-10.0); %Neutrophils 83.2 % (42.0-75.0); Hemoglobin 13.1 g/dL (14.0-18.0); Mean Corpuscular HGB CONC 33.1 g/dL (32.0-36.0); Mean Corpuscular Volume 99.4 fl (78.0-98.0); Mean Platelet Volume 7.9 fL (7.4-10.4); Platelet Count 262 10x3/uL (130-400); RBC Distribution Width 12.9 % (11.5-14.5); Red Blood Cell (RBC) Count 3.97 mill/uL (4.70-6.10); White Blood Cell (WBC) Count 18.2 10x3/uL (4.8-10.8)
[2022-03-26 04:42] LABS: Anion Gap 12 mmol/L (10-20); BUN (Urea Nitrogen) 18 mg/dL (8.4-25.7); Calc. Creatinine Clearance 105 mL/min (70-130); Calcium 7.9 mg/dL (7.8-10.44); Carbon Dioxide 26 mmol/L (23-31); Chloride 101 mmol/L (98-107); Estimated GFR 84; Glucose 152 mg/dL (83-110); Potassium 3.6 mmol/L (3.5-5.1); Sodium 135 mmol/L (136-145)
[2022-03-26 05:21] VITALS: BMI 38.4
[2022-03-26] MEDS ORDERED: methylPREDNISolone Sod Succ/PF 125 MG/2 ML VIAL IVP SCH (08:00)
[2022-03-26] MEDS: Cefepime 1 GM in Sodium Chloride 0.9% 100 ML IVPB SCH ×2 (08:41→20:57)
[2022-03-26] MEDS ORDERED: FLU VACC QS2022-23(65YR UP)/PF 240 MCG/0.7 ML SYRINGE IM ONE (09:00)
[2022-03-26] MEDS ORDERED: Finasteride 5 MG TAB PO SCH (09:00)
[2022-03-26] MEDS ORDERED: risperiDONE 1 MG TAB PO SCH (09:00)
[2022-03-26 09:30] LABS: SARS-CoV-2 NAA Rapid Test Not Detected (NotDetected)
[2022-03-26] MEDS: Ziprasidone 20 MG CAP PO SCH (12:22)
[2022-03-26] MEDS: Carvedilol 6.25 MG TAB PO SCH ×2 (14:17→20:56)
[2022-03-26] MEDS: Rivaroxaban 10 MG TAB PO SCH (14:18)
[2022-03-26] MEDS: Famotidine 20 MG TAB PO SCH ×2 (14:19→20:56)
[2022-03-26] MEDS: methylPREDNISolone Sod Succ 40 MG VIAL IVP SCH ×2 (14:24→17:38)
[2022-03-26] MEDS ORDERED: Dextrose 50% Abboject 50 ML SYRINGE SLOW IVP PRN (16:44)
[2022-03-26] MEDS ORDERED: Dextrose 5% in Water 1,000 ML IV PRN (16:44)
[2022-03-26] MEDS ORDERED: Insulin Regular 300 UNITS/3 ML VIAL SC PRN (16:44)
[2022-03-26] MEDS: HumaLOG 300 UNITS/3 ML VIAL SC PRN ×2 (17:39→20:57)
[2022-03-26] MEDS: Mometasone 200 MCG/Formoterol 5 MCG 120 PUFF INHALER INH SCH (19:19)
[2022-03-26] MEDS: metFORMIN 500 MG TAB PO SCH (20:56)
[2022-03-26] MEDS: Atorvastatin Calcium 10 MG TAB PO SCH (20:57)
[2022-03-26] MEDS: Tamsulosin HCl 0.4 MG CAP PO SCH (20:57)
[2022-03-26] MEDS: risperiDONE 1 MG TAB PO SCH (20:57)
[2022-03-26] MEDS: Icosapent Ethyl 1 GM CAPSULE PO SCH (21:51)
[2022-03-26 23:34] LABS: Strep pneumo Urine Ag NEGATIVE (NEGATIVE)
[2022-03-27] MEDS: HumaLOG 300 UNITS/3 ML VIAL SC PRN ×5 (00:02→21:20)
[2022-03-27] MEDS: methylPREDNISolone Sod Succ 40 MG VIAL IVP SCH ×4 (00:03→17:57)
[2022-03-27 05:57] LABS: Hemoglobin A1c 7.1 % (4.0-6.0)
[2022-03-27 06:02] LABS: #Lymphocytes 0.7 thou/uL (1.20-3.40); #Monocytes 0.4 thou/uL (0.11-0.59); #Neutrophils 14.8 thou/uL (1.40-6.50); %Basophils 0.1 % (0.0-1.0); %Eosinophils 0.1 % (0.0-10.0); %Lymphocytes 4.3 % (21.0-51.0); %Monocytes 2.6 % (0.0-10.0); %Neutrophils 92.9 % (42.0-75.0); Hemoglobin 12.5 g/dL (14.0-18.0); Mean Corpuscular HGB CONC 31.9 g/dL (32.0-36.0); Mean Corpuscular Hemoglobin 32.2 pg (27.0-31.0); Platelet Count 287 10x3/uL (130-400); RBC Distribution Width 12.7 % (11.5-14.5); Red Blood Cell (RBC) Count 3.89 mill/uL (4.70-6.10); White Blood Cell (WBC) Count 15.9 10x3/uL (4.8-10.8)
[2022-03-27 06:20] LABS: Anion Gap 14 mmol/L (10-20); BUN (Urea Nitrogen) 25 mg/dL (8.4-25.7); Calc. Creatinine Clearance 101 mL/min (70-130); Calcium 8.1 mg/dL (7.8-10.44); Carbon Dioxide 25 mmol/L (23-31); Chloride 101 mmol/L (98-107); Estimated GFR 78; Glucose 228 mg/dL (83-110); Potassium 4.1 mmol/L (3.5-5.1); Sodium 136 mmol/L (136-145)
[2022-03-27] MEDS: Mometasone 200 MCG/Formoterol 5 MCG 120 PUFF INHALER INH SCH ×2 (06:47→19:50)
[2022-03-27] MEDS: Alogliptin 25 MG TAB PO SCH (09:31)
[2022-03-27] MEDS: metFORMIN 500 MG TAB PO SCH ×2 (09:31→22:28)
[2022-03-27] MEDS: Ziprasidone 20 MG CAP PO SCH (09:32)
[2022-03-27] MEDS: Cefepime 1 GM in Sodium Chloride 0.9% 100 ML IVPB SCH ×2 (09:32→21:21)
[2022-03-27] MEDS: Rivaroxaban 10 MG TAB PO SCH (09:32)
[2022-03-27] MEDS: Finasteride 5 MG TAB PO SCH (09:32)
[2022-03-27] MEDS: Famotidine 20 MG TAB PO SCH ×2 (09:32→21:27)
[2022-03-27] MEDS: Carvedilol 6.25 MG TAB PO SCH ×2 (09:32→21:26)
[2022-03-27] MEDS ORDERED: Furosemide 40 MG/4 ML VIAL SLOW IVP SCH (16:45)
[2022-03-27] MEDS ORDERED: Ipratropium Bromide 2.5 ml Neb ONE (18:30)
[2022-03-27] MEDS: Icosapent Ethyl 1 GM CAPSULE PO SCH (21:26)
[2022-03-27] MEDS: risperiDONE 1 MG TAB PO SCH (21:26)
[2022-03-27] MEDS: Atorvastatin Calcium 10 MG TAB PO SCH (21:27)
[2022-03-27] MEDS: Tamsulosin HCl 0.4 MG CAP PO SCH (22:28)
[2022-03-28] MEDS: HumaLOG 300 UNITS/3 ML VIAL SC PRN ×4 (00:22→17:27)
[2022-03-28] MEDS: methylPREDNISolone Sod Succ 40 MG VIAL IVP SCH ×4 (00:23→17:27)
[2022-03-28 05:50] LABS: Anion Gap 15 mmol/L (10-20); BUN (Urea Nitrogen) 30 mg/dL (8.4-25.7); Calc. Creatinine Clearance 95 mL/min (70-130); Calcium 8.3 mg/dL (7.8-10.44); Carbon Dioxide 23 mmol/L (23-31); Chloride 103 mmol/L (98-107); Estimated GFR 74; Glucose 189 mg/dL (83-110); Potassium 4.8 mmol/L (3.5-5.1); Sodium 136 mmol/L (136-145)
[2022-03-28 06:55] LABS: Band 11 % (5-11); Hemoglobin 13.3 g/dL (14.0-18.0); Lymphocytes 2 % (21-51); MDiff Complete? YES; Mean Corpuscular HGB CONC 32.6 g/dL (32.0-36.0); Mean Corpuscular Hemoglobin 32.9 pg (27.0-31.0); Mean Platelet Volume 7.9 fL (7.4-10.4); Monocytes 2 % (0-10); Neutrophil 85 % (42-75); Platelet Count 342 10x3/uL (130-400); RBC Distribution Width 12.6 % (11.5-14.5); Red Blood Cell (RBC) Count 4.05 mill/uL (4.70-6.10); White Blood Cell (WBC) Count 21.4 10x3/uL (4.8-10.8)
[2022-03-28] MEDS: Mometasone 200 MCG/Formoterol 5 MCG 120 PUFF INHALER INH SCH (09:05)
[2022-03-28] MEDS: Alogliptin 25 MG TAB PO SCH (09:11)
[2022-03-28] MEDS: metFORMIN 500 MG TAB PO SCH (09:11)
[2022-03-28] MEDS: Carvedilol 6.25 MG TAB PO SCH (09:11)
[2022-03-28] MEDS: Finasteride 5 MG TAB PO SCH (09:12)
[2022-03-28] MEDS: Rivaroxaban 10 MG TAB PO SCH (09:12)
[2022-03-28] MEDS: Ziprasidone 20 MG CAP PO SCH (09:12)
[2022-03-28] MEDS: Famotidine 20 MG TAB PO SCH (09:12)
[2022-03-28] MEDS: Cefepime 1 GM in Sodium Chloride 0.9% 100 ML IVPB SCH (09:12)
[2022-03-28] MEDS ORDERED: Ipratropium Oral Inhaler INH PRN (16:06)
[2022-03-28] MEDS ORDERED: Albuterol 200 PUFF (6.7GM INHALER) INH PRN (16:06)
[2022-03-28 16:57] VITALS: BP 174/90; TEMP 97.9
[2022-03-28] MEDS ORDERED: Ipratropium Bromide 0.06% Nasal Inhaler 15ml EA NARE PRN (17:00)
== END 2022-03-28 18:25 | disposition home health service (06) | DRG 871 ==
LOC: ERS 12:37 → ERHOLD 16:14 → CCU 17:56 → NEURO 03-26 10:48
PROVIDERS: ADMIT Internal Medicine; ATTEND Family Medicine
DX: A41.9 Sepsis, unspecified organism (principal); J18.9 Pneumonia, unspecified organism; J96.01 Acute respiratory failure with hypoxia; I48.20 Chronic atrial fibrillation, unspecified; E87.20 Acidosis, unspecified; J44.0 Chronic obstructive pulmonary disease with (acute) lower respiratory infection; J44.1 Chronic obstructive pulmonary disease with (acute) exacerbation; I50.22 Chronic systolic (congestive) heart failure; Z20.822 Contact with and (suspected) exposure to COVID-19; I25.10 Atherosclerotic heart disease of native coronary artery without angina pectoris; N40.0 Benign prostatic hyperplasia without lower urinary tract symptoms; E78.5 Hyperlipidemia, unspecified; F17.210 Nicotine dependence, cigarettes, uncomplicated; E11.9 Type 2 diabetes mellitus without complications; G47.33 Obstructive sleep apnea (adult) (pediatric); E66.9 Obesity, unspecified; I11.0 Hypertensive heart disease with heart failure; Z96.653 Presence of artificial knee joint, bilateral; Z88.0 Allergy status to penicillin; Z79.01 Long term (current) use of anticoagulants; Z79.84 Long term (current) use of oral hypoglycemic drugs; Z79.899 Other long term (current) drug therapy; Z68.38 Body mass index [BMI] 38.0-38.9, adult
CPT/HCPCS: 36415; 36416; 36600; 71045; 80048; 80053; 81003; 81015; 82805; 83036; 83605; 83690; 84145; 84484; 85025; 87040; 87086; 87449; 87804; 93005; 94640; 94660; 96365; 96367; J0456; J0692; J0696; J1815; J1940; J2920; J2930; J3490; J7050; J7620; U0002; U0003; U0005

== ENCOUNTER 2023-10-10 08:17 | Emergency (ER) | payer MEDICARE, BC ==
[2023-10-10 09:14] LABS: #Basophils Less than 0.03 10x3/uL (0.0-0.2); %Basophils 0.2 % (0.0-1.0); %Eosinophils 0.3 % (0.0-10.0); %Lymphocytes 4.4 % (21.0-51.0); %Monocytes 3.1 % (0.0-10.0); %Neutrophils 91.1 % (42.0-75.0); Hematocrit 45.8 % (42.0-52.0); Hemoglobin 14.8 g/dL (14.0-18.0); Mean Corpuscular HGB CONC 32.3 g/dL (32.0-36.0); Mean Corpuscular Hemoglobin 31.4 pg (27.0-31.0); Mean Corpuscular Volume 97.2 fL (78.0-98.0); Mean Platelet Volume 9.8 fL (7.4-10.4); Platelet Count 271 10x3/uL (130-400); RBC Distribution Width 15.8 % (11.5-14.5); Red Blood Cell (RBC) Count 4.71 mill/uL (4.70-6.10)
[2023-10-10 09:28] LABS: ALT (SGPT) 7 U/L (8-55); AST (SGOT) 13 U/L (5-34); Alkaline Phosphatase 56 U/L (40-110); Anion Gap 17 mmol/L (10-20); BUN (Urea Nitrogen) 12 mg/dL (8.4-25.7); Bilirubin, Total 0.5 mg/dL (0.2-1.2); Calc. Creatinine Clearance 0 mL/min (70-130); Calcium 8.8 mg/dL (7.8-10.44); Carbon Dioxide 31 mmol/L (23-31); Chloride 96 mmol/L (98-107); Estimated GFR 86; Globulin 3.8 g/dL (2.4-3.5); Glucose 117 mg/dL (83-110); Magnesium 1.8 mg/dL (1.6-2.6); Protein, Total 6.8 g/dL (5.8-8.1); Sodium 139 mmol/L (136-145)
[2023-10-10 09:32] LABS: INR-International Normal Ratio 1.3; PTT 32.1 sec (22.9-36.1); Prothrombin Time 16.2 sec (12.0-14.7)
[2023-10-10 09:34] LABS: Troponin I 0.015 ng/mL (< 0.028)
[2023-10-10 09:51] LABS: Influenza A by NAA Not Detected (NotDetected); Influenza B by NAA Not Detected (NotDetected); SARS-CoV-2 NAA Rapid Test Not Detected (NotDetected)
[2023-10-10] MEDS ORDERED: Iopamidol-370 76% 500 ML MDV (1 ML CHARGE) ONE (10:56)
[2023-10-10 12:25] LABS: Bacteria/HPF 3+ HPF (None Seen); Bilirubin Negative (Negative); Blood, Urine Negative (Negative); CAUTI Indications for Culture Alt mental st,lethar; Clarity Turbid (Clear); Glucose, Urine (Dipstick) >=1000 mg/dL (Negative); Ketone, Urine Negative (Negative); Leukocyte 75 Leu/uL (Negative); Nitrite 2+ (Negative); Protein, Urine (Dipstick) 70 mg/dL (Neg-Trace); RBC/HPF None Seen HPF (0-3); Specific Gravity, Urine 1.016 (1.002-1.036); Squamous Epithelial 0-3 HPF (0-3); Urobilinogen Normal mg/dL (Less than 2)
[2023-10-10 12:30] LABS: Urine Culture Reflex No No
[2023-10-10] MEDS ORDERED: cefTRIAXone (ROCEPHIN) 2 GM VIAL ONE (12:55)
[2023-10-10] MEDS ORDERED: Sodium Chloride 0.9% 100 ML ONE (12:55)
== END 2023-10-10 16:24 ==
LOC: ERS 08:17
DX: N39.0 Urinary tract infection, site not specified (principal); R53.1 Weakness; I10 Essential (primary) hypertension; E11.9 Type 2 diabetes mellitus without complications; I48.91 Unspecified atrial fibrillation; I25.10 Atherosclerotic heart disease of native coronary artery without angina pectoris; J44.9 Chronic obstructive pulmonary disease, unspecified; F17.210 Nicotine dependence, cigarettes, uncomplicated; E78.5 Hyperlipidemia, unspecified
CPT/HCPCS: 0240U; 70450; 71045; 71275; 80053; 81001; 83605; 83735; 83880; 84484; 85025; 85610; 85730; 87040; 87149 ×2; 93005; 94760; 96365; 99285; J0696; J3490; Q9967; 36415